=== PATIENT | male | born 1950 | race Caucasian/White ===

== ENCOUNTER 2016-12-09 14:12 | Emergency (ER) | payer MEDICARE, OTHER ==
--- NOTE | 2016-12-09 15:15 | ED ---
Back Pain - History of Current Complaint Chief Complaint: EDBackInjuryPain Stated Complaint: FALL / LT RIB-BACK PAIN Time Seen by Provider: 12/09/16 15:00 Hx Obtained From: Patient Onset/Duration: Sudden Onset - pt fell last night after drinking too much alcohol. he felt pain in L posterior back/.rib area Onset/Duration: Started Hours Ago, Traumatic Timing: Constant Severity Currently: Severe Pain Intensity: 10 Character: Sharp, Throbbing, Spasmodic Aggravating Symptom(s): Movement Alleviating Symptom(s): Position Associated Signs And Symptoms: Positive: Bruising - Allergies/Home Medications Allergies/Adverse Reactions: Allergies Allergy/AdvReac Type Severity Reaction Status Date / Time No Known Allergies Allergy Verified 03/12/15 12:00 PMH/Surg Hx/FS Hx/Imm Hx Previously Healthy: Yes Endocrine/Hematology History: Denies: Hx Diabetes Cardiovascular History: Reports: Hx Hypercholesterolemia, Hx Hypertension - medicated Denies: Hx Angina, Hx Myocardial Infarction, Hx Pacemaker/ICD Respiratory History: Denies: Hx Asthma GI History: Denies: Other GI Disorders Musculoskeletal History: Denies: Other Musculoskeletal History Sensory History: Reports: Hx Contacts or Glasses Denies: Hx Hearing Aid Opthamlomology History: Reports: Hx Contacts or Glasses Neurological History: Reports: Other Neuro Impairments/Disorders - miasthenia gravis Psychiatric History: Reports: Hx Depression Denies: Hx Panic Disorder - Surgical History Surgery Procedure, Year, and Place: cataract repair, Infectious Disease History: No Infectious Disease History: Denies: History Other Infectious Disease, Traveled Outside the [place] in Last 30 Days - Family History Known Family History: Positive: Hypertension - Social History Occupation: Retired - human resources compliance manager Alcohol Use: None Substance Use Type: Reports: None Smoking Status (MU): Former Smoker Review of Systems Constitutional: Negative Negative: Fever, Chills Cardiovascular: Negative Negative: Palpitations, Chest Pain Respiratory: Negative Negative: Shortness Of Breath Gastrointestinal: Negative Negative: Abdominal Pain, Nausea Positive: Other - rib pain Positive: Bruising - L lower lat back Neurological: Negative Psychological: Normal All Other Systems Reviewed And Are Negative: Yes Physical Exam Triage Information Reviewed: Yes Vital Signs On Initial Exam: Initial Vitals Temp Pulse Resp BP Pulse Ox 98 F 80 16 180/87 99 12/09/16 14:15 12/09/16 14:15 12/09/16 14:15 12/09/16 14:15 12/09/16 14:15 Vital Signs Reviewed: Yes Appearance: Positive: Well-Appearing, Well-Nourished, Pain Distress - if moving or taknig deep breath Skin: Positive: Warm, Skin Color Reflects Adequate Perfusion, Dry Head/Face: Positive: Normal Head/Face Inspection Neck: Positive: Supple, Nontender Respiratory/Lung Sounds: Positive: Clear to Auscultation, Breath Sounds Present. Negative: Decreased Breath Sounds Cardiovascular: Positive: Normal, RRR Abdomen Description: Positive: Nontender, No Organomegaly, Soft Musculoskeletal: Positive: Other - palp pain L lower, lateral rib area, ecchymosis, mild swelling Neurological: Positive: Normal, Sensory/Motor Intact, Alert, Oriented to Person Place, Time Psychiatric: Positive: Normal Diagnostics - Vital Signs Vital Signs Temp Pulse Resp BP Pulse Ox 12/09/16 14:15 98 F 80 16 180/87 99 - Laboratory Lab Statement: Any lab studies that have been ordered have been reviewed, and results considered in the medical decision making process. Re-Evaluation - Re-Evaluation First Eval Re-Evaluation Time: 17:00 - still having pain, but not worsening. Change: Unchanged Back Pain Course/Dx - Diagnoses Differential Diagnosis/HQI/PQRI: Positive: Fracture, Other - contusion Provider Diagnoses: Fractured rib Discharge - Discharge Plan Condition: Stable Disposition: HOME Prescriptions: Baclofen TAB* [Lioresal TAB*] 10 mg PO TID PRN #30 tab MDD 3 PRN Reason: Spasms - Muscle HYDROcodone/ACETAMIN 5-325 MG* [[place] 5-325 TAB*] 2 tab PO Q6H PRN #32 tab MDD 8 PRN Reason: Pain Patient Education Materials: Rib Fracture (ED) Referrals: Obey Landeros MD [Primary Care Provider] - 2 Days Additional Instructions: Ice to area of pain use medication as directed Return to ER if you experience shortness of breath or chest pain at any time
[2016-12-09] MEDS ORDERED: HYDROcodone/ACETAMIN 5-325 MG* 1 TAB PO ONE ×2 (16:30→17:12)
[2016-12-09] MEDS ORDERED: Cyclobenzaprine TAB* 10 MG PO ONE (17:16)
--- NOTE | 2016-12-09 17:16 | RAD ---
INDICATION: Posterior left rib pain after a fall the previous night COMPARISON: None. TECHNIQUE: 4 views of the left ribs were obtained. FINDINGS: On the AP view minimally displaced rib fractures are seen at the 12 and 11th ribs. On the oblique view there are at least 2 minimally displaced rib fractures overlying the lower left lateral ribs, potentially ribs #9 and 10. IMPRESSION: The patient has at least 2 left lower lateral rib fractures with minimal displacement.
[2016-12-09] MEDS ORDERED: Baclofen TAB* 10 MG PO ONE (17:23)
[2016-12-09] MEDS ORDERED: Baclofen TAB* 10 MG ONE (18:02)
[2016-12-09 18:36] VITALS: BP 169/78
== END 2016-12-09 18:33 | disposition home or self-care (01) ==
LOC: ED 14:12
DX: S22.32XA Fracture of one rib, left side, initial encounter for closed fracture (principal); W19.XXXA Unspecified fall, initial encounter; Y93.9 Activity, unspecified; Y92.9 Unspecified place or not applicable; Z87.891 Personal history of nicotine dependence
CPT/HCPCS: 99283; A9270-GY

== ENCOUNTER 2017-02-20 06:40 | Inpatient (IN) | payer MEDICARE, OTHER ==
[~2017-02-20 06:40] MED LIST: Famotidine IV* 10 MG/ML 2 ML (20 mg) IV ONE; Hydrocortisone INJ* 100 MG VIAL IV ONE
[2017-02-20] MEDS ORDERED: Famotidine IV* 10 MG/ML 2 ML (20 mg) ONE (06:59)
[2017-02-20] MEDS ORDERED: Buffered Lidocaine 0.9% SYRIN* 5 ML/SYR SYRINGE ONE (07:00)
[2017-02-20] MEDS ORDERED: ceFAZolin 2 GM PREMIX(*) 2 GM/50 ML BAG IVPB ONE (07:00)
[2017-02-20] MEDS ORDERED: Hydrocortisone INJ* 100 MG VIAL ONE (07:00)
[2017-02-20] MEDS ORDERED: Thrombin 5,000 UNITS* 1 APPLIC KIT - topical use - TOPICAL ONE (07:18)
[2017-02-20] MEDS ORDERED: Lidocaine 1% MPF wEPI 200,000* 30 ML SDV ONE (07:18)
[2017-02-20] MEDS ORDERED: Bacitracin IV* 50,000 UNITS INJ ONE (07:18)
[2017-02-20] MEDS ORDERED: Propofol* 10 MG/ML 20 ML BTL IV PUSH ONE (07:27)
[2017-02-20] MEDS ORDERED: fentaNYL* 50 MCG/ML 2 ML VIAL (100 MCG VIAL) ONE ×2 (07:27→10:17)
[2017-02-20] MEDS ORDERED: Lidocaine 2% PF * 5 ML VIAL ONE (07:27)
[2017-02-20] MEDS ORDERED: Midazolam* 1 MG/ML 2 ML VIAL (2 MG) ONE (07:27)
[2017-02-20] MEDS ORDERED: Succinylcholine* 20 MG/ML 10 ML VIAL ONE (07:27)
[2017-02-20] MEDS ORDERED: EPHEDrine (Pressors)* 50 MG/ML VIAL ONE (08:12)
[2017-02-20] MEDS ORDERED: Ondansetron INJ* 2 MG/ML VIAL ONE (08:22)
[2017-02-20] MEDS ORDERED: HYDROcodone/ACETAMIN 5-325 MG* 1 TAB PO PRN (08:28)
[2017-02-20] MEDS ORDERED: oxyCODONE/Acetamin 5/325 MG* TAB PO PRN (08:28)
[2017-02-20] MEDS ORDERED: PROCHLORPERAZINE INJ 5 MG/ML 2 ML VIAL IV PRN (08:28)
[2017-02-20] MEDS ORDERED: fentaNYL* 50 MCG/ML 2 ML VIAL (100 MCG VIAL) IV PRN (08:28)
[2017-02-20] MEDS ORDERED: Acetaminophen TAB* 325 MG PO PRN (09:15)
[2017-02-20] MEDS ORDERED: Ondansetron INJ* 2 MG/ML VIAL IV PRN (09:15)
--- NOTE | 2017-02-20 10:13 | RAD ---
HISTORY: Decompressive lumbar laminectomy COMPARISONS: MRI dated January 11, 2017 VIEWS: 2 , lateral portable crosstable views of the lumbar spine performed for localization during spinal surgery, performed at 8:10 AM and 8:55 AM FINDINGS: There is transitional anatomy. Based on counting scheme from the MRI of January 11, 2017. At 8:10 AM, a metallic probe is noted opposite of the L4 pedicle, counting from S1 as the last, transitional vertebral body, as noted on MRI. At 8:55 AM, a metallic probe is noted opposite of L5-S1 IMPRESSION: LIMITED PORTABLE VIEWS OF THE LUMBAR SPINE FOR LOCALIZATION DURING SPINAL SURGERY
[2017-02-20] MEDS: Insulin LISPRO* 1 UNITS UNIT SUBCUT SCH ×3 (12:07→21:03)
[2017-02-20] MEDS: HYDROcodone/ACETAMIN 5-325 MG* 1 TAB PO PRN ×3 (13:05→22:56)
[2017-02-20] MEDS: PITAVASTATIN 1 MG PO SCH (20:01)
[2017-02-21] MEDS: Insulin LISPRO* 1 UNITS UNIT SUBCUT SCH ×4 (07:29→20:43)
--- NOTE | 2017-02-21 07:43 | PN ---
Progress Note - Progress Note SOAP: Subjective: []POD # 1 Doing well Leg pain with walking relieved Still with moderate drain output Objective: []Neuro intact Moderate drain output Assessment: []Satis post op course Plan: [] Monitor drainage Continue to observe for now
[2017-02-21] MEDS: Hydrochlorothiazide TAB* 25 MG PO SCH (08:20)
[2017-02-21] MEDS: amLODIPine TAB* 5 MG PO SCH (08:20)
[2017-02-21] MEDS: HYDROcodone/ACETAMIN 5-325 MG* 1 TAB PO PRN ×4 (08:20→22:11)
[2017-02-21] MEDS ORDERED: Magnesium Hydroxide LIQ* 30 ML UDC PO PRN (19:48)
[2017-02-21] MEDS ORDERED: Docusate CAP* 100 MG PO PRN (19:48)
[2017-02-21] MEDS: PITAVASTATIN 1 MG PO SCH (20:45)
[2017-02-22] MEDS: HYDROcodone/ACETAMIN 5-325 MG* 1 TAB PO PRN ×2 (02:43→11:19)
[2017-02-22 07:48] VITALS: BP 117/59
--- NOTE | 2017-02-22 07:59 | PN ---
Progress Note - Progress Note SOAP: Subjective: [This is a 66 year old male s/p decompressive lumbar laminectomy L2-3 and L4-5, POD #2. Ambulation is improved post-op, less pain. He is eating, drinking and voiding without difficulty. He complains of soreness in the shoulders and anterior thighs but understands this is related to positioning during surgery. He denies headache. No numbness, tingling or pain in the lower extremities. ] Objective: [] Vital Signs: Temp Pulse Resp BP Pulse Ox 98.6 F 60 16 117/59 96 02/22/17 07:12 02/22/17 07:12 02/22/17 07:12 02/22/17 07:12 02/22/17 07:12 General: Alert and oriented. No distress. Neuro: Motor and sensory intact. Incision: Intact with carlos. No infection. CARMEN drain removed today. Extremities: Full ROM CARMEN drain output 02/20/17 02/20/17 02/20/17 10:15 12:45 13:49 Output, CARMEN #1 50 30 50 02/20/17 02/20/17 02/20/17 15:10 16:54 19:45 Output, CARMEN #1 40 15 20 02/20/17 02/21/17 02/21/17 22:00 00:18 04:00 Output, CARMEN #1 50 20 10 02/21/17 02/21/17 02/21/17 08:24 13:54 18:14 Output, CARMEN #1 20 30 10 02/21/17 02/22/17 02/22/17 22:00 02:51 06:27 Output, CARMEN #1 10 5 10 Assessment: [Satisfactory post-op course. ] Plan: [1. Discharge home today. 2. Discharge instructions discussed with the patient. ]
[2017-02-22] MEDS: Insulin LISPRO* 1 UNITS UNIT SUBCUT SCH ×2 (08:25→14:50)
[2017-02-22] MEDS: amLODIPine TAB* 5 MG PO SCH (09:12)
[2017-02-22] MEDS: Hydrochlorothiazide TAB* 25 MG PO SCH (09:12)
--- NOTE | 2017-02-24 00:28 | DS ---
DISCHARGE SUMMARY: DATE OF ADMISSION: 02/20/17 DATE OF DISCHARGE: 02/22/17 DISCHARGE DIAGNOSES: 1. Lumbar spinal stenosis. 2. Hypertension. 3. Type 2 diabetes. SPECIAL PROCEDURES: Decompressive lumbar laminectomy at L2-L3 and L4-L5. HOSPITAL COURSE: This 66-year-old male was seen in the office with symptomatic lumbar stenosis. He had failed to improve over nearly 2 years of conservative treatment and was admitted at this time for elective surgical therapy. On the day of admission, he was taken to surgery where under general anesthesia, a decompressive lumbar laminectomy at L2-L3 and L4-L5 operation was carried out. Postoperatively, he is feeling well. Preoperative lower extremity symptoms with ambulation were improved. He is ambulating without difficulty. He was eating, drinking and voiding without difficulty. Pain was well controlled with oral pain medications. He remained in the hospital for an additional night of observation secondary to continued wound drain output. On the second postoperative day, the CARMEN wound drain was removed and he was discharged home to the care of his family. DISCHARGE INSTRUCTIONS: Including wound care and activity level were discussed with the patient and provided. He will be seen in the office in approximately 7 to 10 days for followup and staple removal. DISCHARGE MEDICATIONS: [place] 5/325 mg 2 tabs by mouth every 4 hours as needed for pain. JULIAN MATTHEWS [id number]/[facility] #: [id number] RICK
== END 2017-02-22 11:48 | disposition home or self-care (01) | DRG 517 ==
LOC: OR 06:40 → SSU 11:37 → OBSVTOIN 02-21 15:54
PROVIDERS: ADMIT Neurological Surgery; ATTEND Neurological Surgery
PROC: 01NB0ZZ Release Lumbar Nerve, Open Approach (ICD-10-PCS; principal; 2017-02-21)
DX: M48.06 Spinal stenosis, lumbar region (principal); I10 Essential (primary) hypertension; E11.9 Type 2 diabetes mellitus without complications; G47.33 Obstructive sleep apnea (adult) (pediatric)
CPT/HCPCS: 72100; A9270-GY; J0330; J0690; J1720; J2001; J2250; J2405; J2704; J3010

== ENCOUNTER 2018-04-23 21:53 | Inpatient (IN) | payer MEDICARE, OTHER ==
[2018-04-23] MEDS ORDERED: Acetaminophen TAB* 325 MG PO ONE (22:28)
[2018-04-23] MEDS ORDERED: NS 0.9% 1000 ML*IV.FLUID IV ONE (22:28)
[2018-04-23] MEDS ORDERED: Vancomycin(*) 1,000 MG in NS 0.9% 250 ML* 250 ML IVPB ONE (22:30)
[2018-04-23] MEDS ORDERED: Piperacillin/Tazobac ADVAN(*) 3.375 GM in NS 0.9% 100 ML* 100 ML IVPB ONE (22:30)
[2018-04-23 23:14] LABS: ABS Basophils 0 10^3/ul (0-0.2); ABS Eosinophils 0 10^3/ul (0-0.6); ABS Lymphocytes 0.7 10^3/ul (1.0-4.8); ABS Monocytes 0.7 10^3/ul (0-0.8); ABS Neutrophils 8.2 10^3/ul (1.5-7.7); ABS Nucleated RBC 0.1 10^3/ul; Eosinophil % 0.2 % (0-6); Hematocrit 40 % (42-52); Hemoglobin 13.8 g/dl (14.0-18.0); Lymphocyte % 7.6 % (25-47); Mean Corpuscular HGB Conc 35 g/dl (31-36); Mean Corpuscular Hemoglobin 33 pg (27-31); Mean Corpuscular Volume 95 fL (80-94); Mean Platelet Volume 7.3 um3 (7.4-10.4); Nucleated Red Blood Cells % 0.7; Platelet Count 201 10^3/ul (150-450); Red Blood Count 4.22 10^6/ul (4.00-5.40); Red Cell Distribution Width 13 % (10.5-15); White Blood Count 9.7 10^3/ul (3.5-10.8)
[2018-04-23 23:23] LABS: INR 1.05 (0.77-1.02)
[2018-04-23] MEDS ORDERED: Piperacillin/Tazobac (*) 3.375 GM BAG ONE (23:30)
[2018-04-23 23:32] LABS: EGFR Non-African American 77.4 (>60)
[2018-04-23] MEDS ORDERED: Aspirin TAB* 325 MG PO ONE (23:41)
--- NOTE | 2018-04-24 01:05 | HP ---
H&P (Free Text) History and Physical: PCP: Noy Landeros MD Cardiology: Jesse Astudillo MD Date/Time: 04/24/2018 0140 CC: headache, garbled speech HPI: Mr eLnz is 68YO male HX DM2, HTN, HLD, JOVANNA, spinal stenosis presents with report of malaise, sore throat, headache, & cough for the past week. Headache is frontal. He had not been getting better and yesterday he developed an episode of of 'garbled', 'nonsensical' speech of uncertain duration which concerned his significant other prompting her to recommend evaluation. There was no neck pain, focal W/N/T or change in vision/swallow. His headache has significantly improved with treatment in the ED consisting of IVFs, aspirin, acetaminophen, ABX, and rest. CT brain is negative as is his CXR. Vitals are stable. He does not met SIRS or qSOFA criteria although he did have a Tmax 38.6C. WBCs are 9.7k. At this time he is likely suffering from a viral illness with concurrent TIA and as such will be admitted to telemetry for appropriate further evaluation. Neither I nor the ED MD feel his presentation warrants spinal tap at this time, although should his situation change it could become a reasonable evaluation. PMedHx DM2 HTN HLD JOVANNA on CPAP spinal stenosis Ambulatory Orders Nursing to reconcile. 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; lives alone; full code status FamHx: Mother: passed in her mid-80s 2nd CVA from AFIB; Father: passed in his 70s 2nd CAD; only sister: alive, healthy; only brother: AFIB, HTN, HLD ROS: as above, otherwise reviewed and all were negative vitals: Vital Signs Temp 38.6 C 04/24/18 00:07 Pulse 96 04/24/18 01:39 Resp 15 04/23/18 21:55 BP 115/51 04/24/18 01:39 Pulse Ox 98 04/24/18 01:39 Intake & Output 04/23/18 04/23/18 04/24/18 11:59 23:59 11:59 Weight 77.111 kg Constitutional: NAD, normally developed, well-nourished white male HEENM: atraumatic; sclera/conjunctiva: anicteric/clear; hearing: clinically intact; oropharynx: clear, mucosa moist Neck: soft tissue: non-tender, no nuchal rigidity; thyroid: normal Pulmonary: clear to auscultation bilaterally, good aeration, no accessory muscle use CV: RR/RR, normal S1S2, no carotid bruit, no jugular venous distention, 2+ B DP/ PT, no edema Abdominal: soft, non-distended, non-tender, no rebound/guarding/rigidity, normoactive bowel sounds, no hepatosplenomegaly or masses, no costovertebral angle tenderness Musculoskeletal: general: grossly intact, non-tender Integumental: normal appearance and texture of exposed skin Neurological cranial nerves III/IV/: symmetric light reflex, EOMI/PERRLA V: intact facial sensation & mastication VII: intact facial symmetry & eye clench VIII: hearing clinically intact IX/X: symmetric palatal motion, no dysarthria XII: midline tongue protrusion, normal voice articulation motor: R-handed LUE: 4+/5 proximally, distally, & grants director strength RUE: 4+/5 proximally, distally, & grants director strength LLE: 4+/5 proximally & distally RLE: 4+/5 proximally & distally coordination finger/nose: intact, symmetric heal/costello: intact, symmetric sensory crude touch: intact globally proprioception: intact B toes DTRs biceps: 1+ B triceps: 1+ B brachioradialis: 1+ B patellar: 1+ B Achilles: 1+ B Babinski: downgoing B Psychiatric orientation: AA&O to PPS affect: calm mood: cooperative, pleasant eye contact: good content: reliable responses: timely insight: good Testing: Lab Results 04/23/18 04/23/18 04/23/18 Range/Units 23:05 23:05 23:05 WBC 9.7 (3.5-10.8) 10^3/ul RBC 4.22 (4.00-5.40) 10^6/ul Hgb 13.8 L (14.0-18.0) g/dl Hct 40 L (42-52) % MCV 95 H (80-94) fL MCH 33 H (27-31) pg MCHC 35 (31-36) g/dl RDW 13 (10.5-15) % Plt Count 201 (150-450) 10^3/ul MPV 7.3 L (7.4-10.4) um3 Neut % (Auto) 84.4 H (38-83) % Lymph % (Auto) 7.6 L (25-47) % [place] % (Auto) 7.5 H (0-7) % Eos % (Auto) 0.2 (0-6) % Baso % (Auto) 0.3 (0-2) % Absolute Neuts (auto) 8.2 H (1.5-7.7) 10^3/ul Absolute Lymphs (auto) 0.7 L (1.0-4.8) 10^3/ul Absolute Monos (auto) 0.7 (0-0.8) 10^3/ul Absolute Eos (auto) 0 (0-0.6) 10^3/ul Absolute Basos (auto) 0 (0-0.2) 10^3/ul Absolute Nucleated RBC 0.1 10^3/ul Nucleated RBC % 0.7 INR (Anticoag Therapy) 1.05 H (0.77-1.02) APTT 29.2 (26.0-36.3) seconds Sodium 137 (135-145) mmol/L Potassium 3.8 (3.5-5.0) mmol/L Chloride 100 L (101-111) mmol/L Carbon Dioxide 28 (22-32) mmol/L Anion Gap 9 (2-11) mmol/L BUN 16 (6-24) mg/dL Creatinine 0.96 (0.67-1.17) mg/dL Est GFR ( Amer) 93.7 (>60) Est GFR (Non-Af Amer) 77.4 (>60) BUN/Creatinine Ratio 16.7 (8-20) Glucose 134 H (70-100) mg/dL Lactic Acid (0.5-2.0) mmol/L Calcium 9.8 (8.6-10.3) mg/dL Total Bilirubin 0.70 (0.2-1.0) mg/dL AST 16 (13-39) U/L ALT 19 (7-52) U/L Alkaline Phosphatase 68 (34-104) U/L Total Creatine Kinase 75 (10-223) U/L Troponin I 0.01 (<0.04) ng/mL C-Reactive Protein 21.64 H (<8.01) mg/L Total Protein 7.5 (6.4-8.9) g/dL Albumin 4.5 (3.2-5.2) g/dL Globulin 3.0 (2-4) g/dL Albumin/Globulin Ratio 1.5 (1-3) 04/23/18 Range/Units 23:05 WBC (3.5-10.8) 10^3/ul RBC (4.00-5.40) 10^6/ul Hgb (14.0-18.0) g/dl Hct (42-52) % MCV (80-94) fL MCH (27-31) pg MCHC (31-36) g/dl RDW (10.5-15) % Plt Count (150-450) 10^3/ul MPV (7.4-10.4) um3 Neut % (Auto) (38-83) % Lymph % (Auto) (25-47) % [place] % (Auto) (0-7) % Eos % (Auto) (0-6) % Baso % (Auto) (0-2) % Absolute Neuts (auto) (1.5-7.7) 10^3/ul Absolute Lymphs (auto) (1.0-4.8) 10^3/ul Absolute Monos (auto) (0-0.8) 10^3/ul Absolute Eos (auto) (0-0.6) 10^3/ul Absolute Basos (auto) (0-0.2) 10^3/ul Absolute Nucleated RBC 10^3/ul Nucleated RBC % INR (Anticoag Therapy) (0.77-1.02) APTT (26.0-36.3) seconds Sodium (135-145) mmol/L Potassium (3.5-5.0) mmol/L Chloride (101-111) mmol/L Carbon Dioxide (22-32) mmol/L Anion Gap (2-11) mmol/L BUN (6-24) mg/dL Creatinine (0.67-1.17) mg/dL Est GFR ( Amer) (>60) Est GFR (Non-Af Amer) (>60) BUN/Creatinine Ratio (8-20) Glucose (70-100) mg/dL Lactic Acid 1.4 (0.5-2.0) mmol/L Calcium (8.6-10.3) mg/dL Total Bilirubin (0.2-1.0) mg/dL AST (13-39) U/L ALT (7-52) U/L Alkaline Phosphatase (34-104) U/L Total Creatine Kinase (10-223) U/L Troponin I (<0.04) ng/mL C-Reactive Protein (<8.01) mg/L Total Protein (6.4-8.9) g/dL Albumin (3.2-5.2) g/dL Globulin (2-4) g/dL Albumin/Globulin Ratio (1-3) ECG, personally reviewed: NSR rate 74, no ischemia CXR, personally reviewed: no acute process CT brain WO, personally reviewed: IMPRESSION: No acute intracranial pathology Impression: 68M HX DM2, HTN, HLD, JOVANNA, spinal stenosis presents with TIA-type garbled speech in setting of a probable viral syndrome. DIAGNOSIS & PLAN Primary TIA : telemetry : neurochecks : aspirin given in ED : repeat CT brain WO tomorrow : supplemental oxygen : check lipids in AM : ECHO in AM : consider neurology consult in AM : supportive care fever, BROWNE, sore throat, cough : suspect viral syndrome : given IV vancomycin & piperacillin in ED, will hold further ABX at this time : blood CX : trend temperature & WBC curves : supportive care Secondary DM2 : check A1c : consistent carb diet : continue metformin : correctional lispro w/ ACHS glucometry HTN : review meds once reconciled HLD : heart healthy diet : review meds once reconciled JOVANNA : continue CPAP spinal stenosis : no acute issues Admission Rational: observation for TIA & viral syndrome DVTp: SCDs Code Status: full HCP: female friend: Nikhil Hillman
[2018-04-24] MEDS ORDERED: Ondansetron ODT TAB* 4 MG PO PRN (02:38)
[2018-04-24] MEDS ORDERED: Melatonin 3 MG TAB PO PRN (02:38)
[2018-04-24] MEDS: NS 0.9% 1000 ML* 1,000 ML IV SCH ×2 (03:45→17:28)
[2018-04-24] MEDS: Omeprazole CAP* 20 MG PO SCH (05:38)
[2018-04-24] MEDS: Acetaminophen TAB* 325 MG PO PRN (05:43)
--- NOTE | 2018-04-24 06:41 | ED ---
Neurological HPI - HPI Summary HPI Summary: This is scribe Sandro Lindsay documenting for attending Sita Hernandez M.D. Patient is a 68 y/o M w/ c/o difficulty producing words and BROWNE. Patient is reported to have not been feeling well for five days. He notes a fever, chills, coughing, sore throat, BROWNE, difficulty swallowing, esophageal pain. He denies vomiting and nausea but noted diarrhea last night x3. At around 1630 today, patient was reportedly tired and had decreased appetite. He went to sleep at 1700, woke up at 2000. reports at this time patient was having difficulty producing words. She states patient did not have facial droop, could walk, and could stand. Patient notes he started a new HTN medication a week ago and is concerned this medication might be causing Sx. He stopped taking the new medication he was prescribed and began to use previous medication. On triage, pain is rated 9/10 and nothing is noted to aggravate/alleviate Sx. Home medications and allergies reviewed. I, Dr. Hernandez, personally performed the services described in this documentation as scribed in my presence and it is both accurate and complete. - History of Current Complaint Chief Complaint: EDHeadache Stated Complaint: HEADACHE Time Seen by Provider: 04/23/18 22:12 Hx Obtained From: Patient Onset/Duration: Started hours ago - tiredness and decreased appetite 1630 today , difficulty producing words at 2000 today, Started days ago - fever, chills, coughing, sore throat, BROWNE, difficulty swallowing, esophageal pain five days ago , diarrhea yesterday Current Severity: Severe - 9/10 Pain Intensity: 9 Pain Scale Used: 0-10 Numeric - 9/10 Character: Impaired Speech Aggravating: Nothing Alleviating: Nothing Associated Signs and Symptoms: Positive: Headache, Weakness - tiredness, Impaired Speech, Fever, Diarrhea, Change in Medication. Negative: Nausea/ Vomiting - Additional Pertinent History Primary Care Physician: [id number] Oxygen Devices Used Prior to Hospitalization: None - Allergy/Home Medications Allergies/Adverse Reactions: Allergies Allergy/AdvReac Type Severity Reaction Status Date / Time atorvastatin [From Lipitor] AdvReac Leg Cramps Verified 04/23/18 22:00 PMH/Surg Hx/FS Hx/Imm Hx Endocrine/Hematology History: Reports: Hx Diabetes - DIET & MEDS Cardiovascular History: Reports: Hx Hypercholesterolemia, Hx Hypertension Denies: Hx Angina, Hx Myocardial Infarction, Hx Pacemaker/ICD Respiratory History: Reports: Hx Sleep Apnea Denies: Hx Asthma GI History: Denies: Other GI Disorders History: Denies: Hx Renal Disease Musculoskeletal History: Reports: Other Musculoskeletal History - spinal stenosis Sensory History: Reports: Hx Contacts or Glasses, Hx Hearing Aid - PATRICIO Opthamlomology History: Reports: Hx Contacts or Glasses Neurological History: Reports: Other Neuro Impairments/Disorders - miasthenia gravis Psychiatric History: Reports: Hx Depression Denies: Hx Panic Disorder - Surgical History Surgery Procedure, Year, and Place: cataract repair, Hx Anesthesia Reactions: No - Immunization History Immunizations Up to Date: Yes Infectious Disease History: No Infectious Disease History: Denies: History Other Infectious Disease, Traveled Outside the [place] in Last 30 Days - Family History Known Family History: Positive: Hypertension - Social History Alcohol Use: None Substance Use Type: Reports: None Smoking Status (MU): Former Smoker Amount Used/How Often: smoked since 14 years old , quit when 33 years old Review of Systems Positive: Fever, Chills, Fatigue - tiredness Positive: Sore Throat, Other - difficulty swallowing, esophageal pain Positive: Cough Positive: Diarrhea, Other - decreased appetite. Negative: Vomiting, Nausea Neurological: Other - difficulty producing words Positive: Headache All Other Systems Reviewed And Are Negative: Yes Physical Exam - Summary Physical Exam Summary: VITAL SIGNS: Reviewed. GENERAL: Patient is a well-developed and nourished male who is lying comfortable in the stretcher. Patient is not in any acute respiratory distress. HEAD AND FACE: No signs of trauma. No ecchymosis, hematomas or skull depressions. No sinus tenderness. EYES: PERRLA, EOMI x 2, No injected conjunctiva, no nystagmus. EARS: Hearing grossly intact. Ear canals and tympanic membranes are within normal limits. MOUTH: Oropharynx within normal limits. NECK: Supple, trachea is midline, no adenopathy, no JVD, no carotid bruit, no c- spine tenderness, neck with full ROM. CHEST: Symmetric, no tenderness at palpation LUNGS: Clear to auscultation bilaterally. No wheezing or crackles. CVS: Regular rate and rhythm, S1 and S2 present, no murmurs or gallops appreciated. ABDOMEN: Soft, non-tender. No signs of distention. No rebound no guarding, and no masses palpated. Bowel sounds are normal. EXTREMITIES: FROM in all major joints, no edema, no cyanosis or clubbing. NEURO: Alert and oriented x 3. No acute neurological deficits. Speech is normal and follows commands. GCS 15 SKIN: Dry and warm Triage Information Reviewed: Yes Vital Signs On Initial Exam: Initial Vitals Temp Pulse Resp BP Pulse Ox 100.4 F 83 15 169/68 96 04/23/18 21:55 04/23/18 21:55 04/23/18 21:55 04/23/18 21:55 04/23/18 21:55 Vital Signs Reviewed: Yes - [place] Coma Scale Best Eye Response: 4 - Spontaneous Best Motor Response: 6 - Obeys Commands Best Verbal Response: 5 - Oriented Coma Scale Total: 15 Diagnostics - Vital Signs Vital Signs Temp Pulse Resp BP Pulse Ox 04/24/18 01:39 96 115/51 98 04/24/18 01:00 68 93 04/24/18 00:39 67 122/63 93 04/24/18 00:07 101.5 F 04/24/18 00:00 74 94 04/23/18 23:45 73 95 04/23/18 23:39 75 146/50 93 04/23/18 21:55 100.4 F 83 15 169/68 96 - Laboratory Lab Results: Lab Results 04/23/18 04/23/18 04/23/18 Range/Units 23:05 23:05 23:05 WBC 9.7 (3.5-10.8) 10^3/ul RBC 4.22 (4.00-5.40) 10^6/ul Hgb 13.8 L (14.0-18.0) g/dl Hct 40 L (42-52) % MCV 95 H (80-94) fL MCH 33 H (27-31) pg MCHC 35 (31-36) g/dl RDW 13 (10.5-15) % Plt Count 201 (150-450) 10^3/ul MPV 7.3 L (7.4-10.4) um3 Neut % (Auto) 84.4 H (38-83) % Lymph % (Auto) 7.6 L (25-47) % [place] % (Auto) 7.5 H (0-7) % Eos % (Auto) 0.2 (0-6) % Baso % (Auto) 0.3 (0-2) % Absolute Neuts (auto) 8.2 H (1.5-7.7) 10^3/ul Absolute Lymphs (auto) 0.7 L (1.0-4.8) 10^3/ul Absolute Monos (auto) 0.7 (0-0.8) 10^3/ul Absolute Eos (auto) 0 (0-0.6) 10^3/ul Absolute Basos (auto) 0 (0-0.2) 10^3/ul Absolute Nucleated RBC 0.1 10^3/ul Nucleated RBC % 0.7 INR (Anticoag Therapy) 1.05 H (0.77-1.02) APTT 29.2 (26.0-36.3) seconds Sodium 137 (135-145) mmol/L Potassium 3.8 (3.5-5.0) mmol/L Chloride 100 L (101-111) mmol/L Carbon Dioxide 28 (22-32) mmol/L Anion Gap 9 (2-11) mmol/L BUN 16 (6-24) mg/dL Creatinine 0.96 (0.67-1.17) mg/dL Est GFR ( Amer) 93.7 (>60) Est GFR (Non-Af Amer) 77.4 (>60) BUN/Creatinine Ratio 16.7 (8-20) Glucose 134 H (70-100) mg/dL Lactic Acid (0.5-2.0) mmol/L Calcium 9.8 (8.6-10.3) mg/dL Total Bilirubin 0.70 (0.2-1.0) mg/dL AST 16 (13-39) U/L ALT 19 (7-52) U/L Alkaline Phosphatase 68 (34-104) U/L Total Creatine Kinase 75 (10-223) U/L Troponin I 0.01 (<0.04) ng/mL C-Reactive Protein 21.64 H (<8.01) mg/L Total Protein 7.5 (6.4-8.9) g/dL Albumin 4.5 (3.2-5.2) g/dL Globulin 3.0 (2-4) g/dL Albumin/Globulin Ratio 1.5 (1-3) 04/23/18 04/24/18 Range/Units 23:05 02:02 WBC (3.5-10.8) 10^3/ul RBC (4.00-5.40) 10^6/ul Hgb (14.0-18.0) g/dl Hct (42-52) % MCV (80-94) fL MCH (27-31) pg MCHC (31-36) g/dl RDW (10.5-15) % Plt Count (150-450) 10^3/ul MPV (7.4-10.4) um3 Neut % (Auto) (38-83) % Lymph % (Auto) (25-47) % [place] % (Auto) (0-7) % Eos % (Auto) (0-6) % Baso % (Auto) (0-2) % Absolute Neuts (auto) (1.5-7.7) 10^3/ul Absolute Lymphs (auto) (1.0-4.8) 10^3/ul Absolute Monos (auto) (0-0.8) 10^3/ul Absolute Eos (auto) (0-0.6) 10^3/ul Absolute Basos (auto) (0-0.2) 10^3/ul Absolute Nucleated RBC 10^3/ul Nucleated RBC % INR (Anticoag Therapy) (0.77-1.02) APTT (26.0-36.3) seconds Sodium (135-145) mmol/L Potassium (3.5-5.0) mmol/L Chloride (101-111) mmol/L Carbon Dioxide (22-32) mmol/L Anion Gap (2-11) mmol/L BUN (6-24) mg/dL Creatinine (0.67-1.17) mg/dL Est GFR ( Amer) (>60) Est GFR (Non-Af Amer) (>60) BUN/Creatinine Ratio (8-20) Glucose (70-100) mg/dL Lactic Acid 1.4 0.7 (0.5-2.0) mmol/L Calcium (8.6-10.3) mg/dL Total Bilirubin (0.2-1.0) mg/dL AST (13-39) U/L ALT (7-52) U/L Alkaline Phosphatase (34-104) U/L Total Creatine Kinase (10-223) U/L Troponin I (<0.04) ng/mL C-Reactive Protein (<8.01) mg/L Total Protein (6.4-8.9) g/dL Albumin (3.2-5.2) g/dL Globulin (2-4) g/dL Albumin/Globulin Ratio (1-3) Result Diagrams: 04/24/18 06:40 04/23/18 23:05 Lab Statement: Any lab studies that have been ordered have been reviewed, and results considered in the medical decision making process. - Radiology CXR Xray Interpretation: Positive (See Comments) Radiology Interpretation Completed By: ED Physician - right lower lobe infiltrate, pending official report - CT CT Head CT Interpretation: No Acute Changes CT Interpretation Completed By: Radiologist - No acute intracranial pathology. This report was reviewed by ED physician. - EKG 2305 Cardiac Rate: NL - rate of 74 BPM EKG Rhythm: Sinus Rhythm EKG Interpretation: Normal axis. Normal interval. No ischemic changes Re-Evaluation - Re-Evaluation First Eval Re-Evaluation Time: 23:45 Comment: Discussed plan of treatment for patient further. Second Eval Re-Evaluation Time: 00:46 Comment: Discussed results of labs and tests with patient as well as decision to admit patient to [facility] [place] for further work up. Patient is agreeable with this plan. Course/Dx - Course Assessment/Plan: Patient is a 68 y/o M w/ c/o difficulty producing words and BROWNE. Patient is reported to have not been feeling well for five days. He notes a fever, chills, coughing, sore throat, BROWNE, difficulty swallowing, esophageal pain. He denies vomiting and nausea but noted diarrhea last night x3. At around 1630 today, patient was reportedly tired and had decreased appetite. He went to sleep at 1700, woke up at 2000. reports at this time patient was having difficulty producing words. She states patient did not have facial droop , could walk, and could stand. Patient notes he started a new HTN medication a week ago and is concerned this medication might be causing Sx. He stopped taking the new medication he was prescribed and began to use previous medication. On triage, pain is rated 9/10 and nothing is noted to aggravate/ alleviate Sx. Physical exam was normal. During ED course, patient was given fluids, piperacillin sod/tazobactam sod 100 mls @ 200 ms/hr IVPB ED ONCE, fluids , aspirin 325 mg PO ONCE, Tylenol 975 mg PO ED ONCE. CT Head and EKG showed no abnormal findings. CXR revealed right lower lobe infiltrate. Labs showed CRP 21.64 H, glucose 134 H, chloride 100 L, INR 1.05 H, Hgb 13.8 L, Hct 40 L, MCV 95 H, MCH H, MPV 7.3 L, Neut % 84.4 H, lymph % 7.6 L, mono % 7.5 H, absolute neuts 8.2 H, and absolute lymphs 0.7 L. Patient's case was discussed with Dr. Oscar. Dr. Oscar accepts patient for admission to [facility] [place] for further workup. Patient is agreeable with admission and was diagnosed with TIA and PNA. - Diagnoses Provider Diagnoses: PNA (pneumonia), TIA (transient ischemic attack) - Physician Notifications Discussed Care Of Patient With: Jc Oscar Time Discussed With Above Provider: 00:44 Instructed by Provider To: Other - Dr. Oscar was consulted on patient's case at 0044. He accepts for admission to [facility] [place]. Discharge - Sign-Out/Discharge Documenting (check all that apply): Patient Departure - admit - Discharge Plan Condition: Fair Disposition: ADMITTED TO [facility]
[2018-04-24 07:14] LABS: ABS Basophils 0 10^3/ul (0-0.2); ABS Eosinophils 0 10^3/ul (0-0.6); ABS Monocytes 1.1 10^3/ul (0-0.8); ABS Neutrophils 7.5 10^3/ul (1.5-7.7); ABS Nucleated RBC 0 10^3/ul; Eosinophil % 0.2 % (0-6); Hematocrit 33 % (42-52); Lymphocyte % 10.4 % (25-47); Mean Corpuscular HGB Conc 36 g/dl (31-36); Mean Corpuscular Hemoglobin 34 pg (27-31); Mean Corpuscular Volume 93 fL (80-94); Mean Platelet Volume 7.6 um3 (7.4-10.4); Nucleated Red Blood Cells % 0; Platelet Count 168 10^3/ul (150-450); Red Blood Count 3.59 10^6/ul (4.00-5.40); Red Cell Distribution Width 13 % (10.5-15); White Blood Count 9.6 10^3/ul (3.5-10.8)
--- NOTE | 2018-04-24 07:23 | RAD ---
INDICATION: TIA COMPARISON: None TECHNIQUE: Noncontrast axial source images were acquired from the skull base to the vertex. FINDINGS: Ventricles/sulci: The ventricles and cisterns are normal in size and configuration for age. Brain parenchyma: There is no focal parenchymal finding, evidence of intracranial mass, or intracranial mass effect. Intracranial hemorrhage:None. Extra-axial spaces: There are no abnormal extra axial fluid collections or evidence of extra-axial mass. Calvarium: There is no calvarial fracture or other calvarial abnormality. Scalp: There is no evidence of scalp or extracalvarial soft tissue abnormality. Paranasal sinuses/mastoid: The paranasal sinuses and mastoid air cells are clear. Other: None. IMPRESSION: NEGATIVE EXAMINATION
--- NOTE | 2018-04-24 07:42 | RAD ---
Indication: Fever. Single frontal view of the chest performed at 2234 hours was reviewed. Comparison is made with previous exam dated February 01, 2017. No mediastinal shift is noted. Heart is of normal size and configuration. Lung yañez appear clear. IMPRESSION: NO ACTIVE CARDIOPULMONARY DISEASE IS NOTED. R2
--- NOTE | 2018-04-24 12:19 | ECHO ---
Patient: HANDY MARTINS [facility] Rec#: [id number] : 1950 Date: 04/24/2018 Age: 68y Height: 183 cm / 72.0 in Weight: 170 kg / 374.7 lbs Sex: M BSA: 2.78 Room#: [facility] Admit Date#: 04/24/2018 Type: Inpatient Referring: Jc Oscar MD Reading: Clara Garcia MD Telephone Operator: Arianna Donohue RDCS CC: Obey Landeros CC: Mark Astudillo MD Transthoracic Echocardiogram Indication: TIA BP: 116/44 HR: 69 Rhythm: NSR Findings History: DM,HTN,HLD,JOVANNA,former smoker. Technical Comments: The study is technically limited due to the patient's smoking history. Completed at 1110. Left Ventricle: The left ventricular chamber size is normal. Mild concentric left ventricular hypertrophy is observed. Global left ventricular wall motion and contractility are within normal limits. The estimated ejection fraction is greater than 65%. Normal left ventricular diastolic filling is observed. Left Atrium: The left atrium is mildly dilated. Right Ventricle: The right ventricular cavity size is normal. The right ventricular global systolic function is normal. Right Atrium: The right atrial cavity size is normal. A patent foramen ovale is not demonstrated by color Doppler. There is evidence of an atrial septal aneurysm. Aortic Valve: The aortic valve is trileaflet. There is a trace of aortic regurgitation. There is no evidence of aortic stenosis. Mitral Valve: The mitral valve leaflets are mildly thickened. There is mild mitral regurgitation. There is no evidence of mitral stenosis. Tricuspid Valve: The tricuspid valve leaflets are normal. There is mild tricuspid regurgitation. No pulmonary hypertension is noted. There is no tricuspid stenosis. Pulmonic Valve: The pulmonic valve appears normal. There is no evidence of pulmonic regurgitation. There is no pulmonic stenosis. Pericardium: The pericardium appears normal. Aorta: There is mild dilatation of the ascending aorta.proximal calcification, mobile, in the region of coronary ostia. The aortic arch is not well visualized. There is no dilation of the aortic root. Conclusions Mild concentric left ventricular hypertrophy is observed. Global left ventricular wall motion and contractility are normal to hyperdynamic. The estimated ejection fraction is greater than 65%. The right ventricular global systolic function is normal. There is evidence of an atrial septal aneurysm. No evidence of a patent foramen ovale demonstrated by color Doppler. There is a trace of aortic regurgitation. There is mild mitral regurgitation. There is mild tricuspid regurgitation. There is mild dilatation of the ascending aorta. Mobile calcification in the proximal aorta. No prior echo to compare. Consider CTA to follow up on mobile calcification of the aorta. Measurements Name Value Normal Range RVIDd (AP) 2D 3.5 cm (0.9 - 2.6) RVDdMajor (2D) 3.2 cm (2.2 - 4.4) RAd ISD 4CH 4.6 cm (3.4 - 4.9) RA (A4C)W 3.1 cm (2.9 - 4.6) IVSd (2D) 1.1 cm (0.6 - 1) LVPWd (2D) 1.1 cm (0.6 - 1) LVIDd (2D) 4.7 cm (3.6 - 5.4) LVIDs (2D) 2.5 cm - LV FS (2D) 46 % (25 - 45) Aortic Annulus 1.8 cm (1.4 - 2.6) Ao root diameter (2D) 3.2 cm (2.1 - 3.5) Ascending Ao 3.6 cm (2.1 - 3.4) LA dimension (AP) 2D 4.1 cm (2.3 - 3.8) LAd ISD 4CH 4.6 cm (2.9 - 5.3) LA ISD 4CH W 3.1 cm (2.5 - 4.5) Name Value Normal Range LA ESV SP 4CH (A/L) 12.5 ml - LA ESV SP 2CH (A/L) 23 ml - LA ESV BP (A/L) index 35.8 ml/m2 - Name Value Normal Range MV E-wave Vmax 1.3 m/sec - MV deceleration time 211 msec - MV A-wave Vmax 1.1 m/sec - MV E:A ratio 1.1 ratio - LV septal e' Vmax 0.09 m/sec - LV lateral e' Vmax 0.15 m/sec - LV E:e' septal ratio 14.44 ratio - LV E:e' lateral ratio 8.67 ratio - Name Value Normal Range AV Vmax 2.1 m/sec - AV VTI 35.3 cm - AV peak gradient 17 mmHg - AV mean gradient 7 mmHg - LVOT Vmax 1.9 m/sec - LVOT VTI 32.3 cm - LVOT peak gradient 14 mmHg - LVOT mean gradient 5 mmHg - Name Value Normal Range MR Vmax 4.3 m/sec - MR VTI 116 cm - Name Value Normal Range TR Vmax 2.6 m/sec - TR peak gradient 28 mmHg - RAP 3 mmHg - RVSP 31 mmHg - IVC diameter 1.7 cm - Name Value Normal Range PV Vmax 0.8 m/sec - PV peak gradient 2 mmHg -
[2018-04-24] MEDS ORDERED: Iodixanol* (CONTRAST) 320 MG/ML 100 ML SDV IV ONE (13:22)
[2018-04-24] MEDS ORDERED: Iodixanol* (CONTRAST) 320 MG/ML 100 ML SDV IV SCH ×2 (13:29→14:00)
[2018-04-24] MEDS ORDERED: Gadoteridol* (CONTRAST) 279.3 MG/ML 10 ML IV ONE (15:59)
--- NOTE | 2018-04-24 16:21 | CONS ---
ADDENDUM NOW INCLUDED ON THIS REPORT NEUROLOGY CONSULTATION REPORT: DATE OF CONSULT: 04/24/18 CONSULTING PROVIDER: Jc Oscar MD REASON FOR NEUROLOGICAL CONSULTATION: Headache and slurred speech. CHIEF COMPLAINT: Headache. HISTORY OF PRESENT ILLNESS: Mr. Lenz is a 68-year-old man with history of type 2 diabetes, hypertension, dyslipidemia, obstructive sleep apnea, myasthenia gravis, who follows up with Dr. Melendez and he is only on Mestinon 60 mg daily, who presented to [facility] on 04/23/18 with 1-week history of generalized malaise, sore throat, headache, and cough. The patient has no history of migraine headaches. He describes the headache as bifrontal pressure- like constant pain that started 1 week ago. The headache severity is 6/10. Sleeping on the left side makes the headache better. Cough and sneezing and straining do exacerbate the headache. Light does bother him. He denies any neck pain. During the same time he has the headaches, the patient noticed trouble with word finding. This started yesterday at approximately 3 p.m. The patient went to a play with his significant other at 2 p.m., which he was last seen normal. At 3 p.m., he started developing headaches. His headaches worsened and he took an ibuprofen. He stayed watching the play until he got home at 5:30 where he slept until 8:30. When he woke up, he was having word- finding difficulty. He had no focal weakness or paresthesias. The spouse then immediately took him to the ER for further evaluation. The patient's goal of care is to figure out how to treat his current headache. PAST MEDICAL HISTORY: As mentioned in the HPI. PAST SURGICAL HISTORY: Lumbar spinal surgery in the past. HOME MEDICATIONS: 1. Pitavastatin 1 mg tablet p.o. daily. 2. Prednisone 2.5 mg p.o. daily. The patient did report to me that he was not taking the prednisone. 3. Metformin 500 mg p.o. b.i.d. 4. Hydrochlorothiazide 25 mg p.o. daily. 5. Amlodipine 5 mg p.o. daily. 6. Hydrocodone/acetaminophen 5/325 two tablets by mouth every 4 hours as needed for pain. ALLERGIES: ATORVASTATIN. REVIEW OF SYSTEMS: Review of systems was obtained and otherwise negative except for what was mentioned in the HPI. PHYSICAL EXAM: Vitals: Temperature of 100.5, pulse rate of 73, respiratory rate of 20, oxygen saturation of 96%, and blood pressure is 125/44. General: Ill- appearing man, in no acute distress. I entered the room and that was dark given his headaches. Head: Normocephalic without any obvious abnormality. Eyes: Conjunctivae/corneas are clear. Neck is supple and symmetrical with no nuchal rigidity. Negative Brudzinski's and Kernig's signs. Lungs: Clear to auscultation bilaterally. Cardiovascular: Regular rhythm with normal S1, S2. Extremities: Normal range of motion with no cyanosis. Skin: No skin lesions or laceration. Affect is broad and he was able to provide good medical history. Very easy to establish rapport. Mental Status: Awake. He is alert, oriented to person, place, time, and general circumstances, but he does have word-finding difficulty. He is able to name objects. He is able to repeat sentences. He comprehended complicated commands, but it seems like he has a mild form of expressive aphasia. Cranial Nerves: Normal confrontation bilaterally. Pupils are mid range and reactive to light. Normal consensual response. Sensation is intact on the forehead, cheeks, and jaw region bilaterally. There was no facial droop except for a subtle flattening of the nasolabial fold on the right. Tongue is symmetrical and midline with no atrophy or fasciculation. Motor: No abnormal movements. No pronator drift. He has got 5/5 strength throughout the upper and lower extremities. Reflexes: 2 + brachioradialis, biceps, triceps, patella, and ankles bilaterally. Plantar flexor bilaterally. Sensation is intact to light touch throughout except for he has got a distal to proximal sensory gradient to vibratory sensation up to the ankles. Normal proprioception at the great toes. Normal [id number], but he did have slow alternating movements on the left. Gait and Station: Narrow based, normal stance. DIAGNOSTIC STUDIES/LAB DATA: WBC 9.6, hemoglobin of 12, hematocrit of 33, platelet count of 168. INR of 1.05, APTT 29.2. Sodium 137, potassium 3.8, anion gap is 9, creatinine of 0.96. C-reactive protein of 21. Cholesterol is 99, LDL is 45. Group A strep rapid negative. CT head without contrast was personally reviewed and was obtained yesterday. There was no acute intracranial disease. ASSESSMENT AND PLAN: 1. Mr. Raudel Lenz is a 68-year-old man with history of hypertension, diabetes type 2, myasthenia gravis which he is stable on with he reports Mestinon 1 dose daily, who presented to [facility] for a 1-week history of frontal headaches and new-onset word-finding difficulty. On examination today, the patient did have evidence of some expressive aphasia. He has no other neurological deficit other than a possible reduced alternating movement on the left and left facial droop. He also complains of other nonspecific symptoms such as sore throat, cough, and generalized malaise. I am concerned that the patient may have either a vascular phenomenon versus [employer] viral infection that could be explaining his headache and new neurological deficits. He will need the following tests: MRI brain with and without contrast, MRI head, lumbar puncture. The lumbar puncture will be attempted at bedside. Continue aspirin 81 mg daily. Consider starting the patient on acyclovir for prophylaxis until the HSV comes back. The lumbar puncture, we should check for cell count and diff, Gram stain, protein, glucose, HSV PCR 1 and 2, enterovirus. 2. Hypertension, stable. 3. Dyslipidemia, on statin therapy. 4. History of myasthenia gravis - the patient denied any symptoms of double vision or slurred speech or swallowing difficulty. I discussed this case with nurse practitioner, Reta. TIME SPENT: I spent a total of 75 minutes and greater than 50% of that was spent directly reviewing the medical chart, obtaining history, examining the patient, education and counseling, discussing the treatment plan and prognosis. ADDENDUM: I spoke to Reta who shared with me the echo report. The patient has mobile calcification in the proximal order. We are not sure if this is related to a possible mobile infected mass lesion. However, blood cultures were recommended. In addition, it is interesting that the patient has left upper extremity reduced rapid alternative movements, word finding difficulty, as well as questionable left facial droop. All of that would correlate with multifocal emboli that may be emanating from this mobile calcified lesion. If the MRI brain show evidence of stroke, then we have the cause of the patient's new neurological deficits. Otherwise, we would still need to rule out any [employer] infection by getting a lumbar puncture. I will continue to follow. [id number]/[facility] #: [id number] A- [id number]/[facility]PS #: [id number] RICK
--- NOTE | 2018-04-24 16:26 | RAD ---
Indication: Stroke. Sagittal and axial T1, axial T2, FLAIR, diffusion and susceptibility weighted images of the brain were obtained. Approximately 15 mL of ProHance was injected and sagittal, axial and coronal T1-weighted postcontrast images were repeated. Ventricular structures are midline. No midline shift is noted. Central and cortical atrophy is noted. The FLAIR images demonstrate minimal punctate deep white matter and subcortical white matter changes without restriction of diffusion. These likely represent chronic ischemic White matter change. Posterior fossa and brainstem demonstrates no evidence of abnormal signal. No restriction of diffusion is noted. The postcontrast images demonstrate no evidence of enhancing lesions. Mastoid air cells and paranasal sinuses are otherwise unremarkable. IMPRESSION: No enhancing lesions are noted. No intracranial lesion is identified. No restriction of diffusion is noted. Nonspecific signal abnormalities on the FLAIR images in the deep white matter likely represent minor microvascular change.
--- NOTE | 2018-04-24 16:55 | CONS ---
CONSULTATION NOTE: ADDENDUM: I spoke to Reta who shared with me the echo report. The patient has mobile calcification in the proximal order. We are not sure if this is related to a possible mobile infected mass lesion. However, blood cultures were recommended. In addition, it is interesting that the patient has left upper extremity reduced rapid alternative movements, word finding difficulty, as well as questionable left facial droop. All of that would correlate with multifocal emboli that may be emanating from this mobile calcified lesion. If the CTA is positive as well as the MRA is positive, then we have the cause of the patient's new neurological deficits. Lumbar puncture may not be indicated at that point. I will continue to follow. [id number]/[facility] #: [id number] [facility] CENTEROsvaldo
[2018-04-24] MEDS: Butalb/Acetamin/Caff TAB* 1 TAB PO PRN (18:26)
[2018-04-24 19:59] LABS: Urine Appearance Clear; Urine Blood 1+ (Negative); Urine Color Yellow; Urine Ketones 1+ (Negative); Urine Protein Negative (Negative); Urine Red Blood Cell Trace(0-2/hpf) (Absent); Urine Specific Gravity 1.012 (1.010-1.030); Urine Urobilinogen Negative (Negative); Urine White Blood Cell Trace(0-5/hpf) (Absent)
--- NOTE | 2018-04-24 20:01 | PN ---
Subjective Date of Service: 04/24/18 Interval History: Patient seen and examined post-MRI, headache somewhat improved, still described as all over pressure, improvement with fioricet. Deneis n/v, no chills, remains with low grade fever and states pain in head increases with cough. Objective Active Medications: Acetaminophen (Tylenol Tab*) 650 mg PO Q6H PRN PRN Reason: FEVER/PAIN Last Admin: 04/24/18 05:43 Dose: 650 mg Acetaminophen/Butalbital/Caffeine (Fioricet Tab*) 1 tab PO Q4H PRN PRN Reason: HEADACHE Last Admin: 04/24/18 18:26 Dose: 1 tab Aspirin (Aspirin Ec Tab*) 81 mg PO DAILY MAURICIO Sodium Chloride (Ns 0.9% 1000 Ml*) 1,000 mls @ 125 mls/hr IV PER RATE MAURICIO Last Admin: 04/24/18 17:28 Dose: 125 mls/hr Iodixanol (Visipaque* 320 (Contrast)) 100 ml IV ONCE MAURICIO Stop: 04/26/18 13:28 Iodixanol (Visipaque* 320 (Contrast)) 78 ml IV ONCE MAURICIO Stop: 04/26/18 13:21 Melatonin (Melatonin) 3 mg PO BEDTIME PRN; Protocol PRN Reason: Sleep Omeprazole (Prilosec Cap*) 20 mg PO DAILY@0600 MAURICIO Last Admin: 04/24/18 05:38 Dose: 20 mg Ondansetron HCl (Zofran Odt Tab*) 4 mg PO Q6H PRN PRN Reason: n/v Vital Signs - 8 hr 04/24/18 04/24/18 15:19 18:26 Temperature 99.0 F Pulse Rate 71 Respiratory 20 16 Rate Blood Pressure 130/50 (mmHg) O2 Sat by Pulse 93 Oximetry Oxygen Devices in Use Now: None Appearance: alert, NAD Eyes: No Scleral Icterus, PERRLA Ears/Nose/Mouth/Throat: NL Teeth, Lips, Gums, Mucous Membranes Moist Neck: NL Appearance and Movements; NL JVP, Trachea Midline Respiratory: Symmetrical Chest Expansion and Respiratory Effort, Clear to Auscultation Cardiovascular: NL Sounds; No Murmurs; No JVD, RRR Abdominal: NL Sounds; No Tenderness; No Distention Extremities: No Edema Skin: No Rash or Ulcers Neurological: Alert and Oriented x 3, NL Sensation, NL Gait Nutrition: Taking PO's Result Diagrams: 04/24/18 06:40 04/23/18 23:05 Additional Lab and Data: Lab Results 04/23/18 04/23/18 04/23/18 Range/Units 23:05 23:05 23:05 WBC 9.7 (3.5-10.8) 10^3/ul RBC 4.22 (4.00-5.40) 10^6/ul Hgb 13.8 L (14.0-18.0) g/dl Hct 40 L (42-52) % MCV 95 H (80-94) fL MCH 33 H (27-31) pg MCHC 35 (31-36) g/dl RDW 13 (10.5-15) % Plt Count 201 (150-450) 10^3/ul MPV 7.3 L (7.4-10.4) um3 Neut % (Auto) 84.4 H (38-83) % Lymph % (Auto) 7.6 L (25-47) % [place] % (Auto) 7.5 H (0-7) % Eos % (Auto) 0.2 (0-6) % Baso % (Auto) 0.3 (0-2) % Absolute Neuts (auto) 8.2 H (1.5-7.7) 10^3/ul Absolute Lymphs (auto) 0.7 L (1.0-4.8) 10^3/ul Absolute Monos (auto) 0.7 (0-0.8) 10^3/ul Absolute Eos (auto) 0 (0-0.6) 10^3/ul Absolute Basos (auto) 0 (0-0.2) 10^3/ul Absolute Nucleated RBC 0.1 10^3/ul Nucleated RBC % 0.7 INR (Anticoag Therapy) 1.05 H (0.77-1.02) APTT 29.2 (26.0-36.3) seconds Sodium 137 (135-145) mmol/L Potassium 3.8 (3.5-5.0) mmol/L Chloride 100 L (101-111) mmol/L Carbon Dioxide 28 (22-32) mmol/L Anion Gap 9 (2-11) mmol/L BUN 16 (6-24) mg/dL Creatinine 0.96 (0.67-1.17) mg/dL Est GFR ( Amer) 93.7 (>60) Est GFR (Non-Af Amer) 77.4 (>60) BUN/Creatinine Ratio 16.7 (8-20) Glucose 134 H (70-100) mg/dL Lactic Acid (0.5-2.0) mmol/L Calcium 9.8 (8.6-10.3) mg/dL Total Bilirubin 0.70 (0.2-1.0) mg/dL AST 16 (13-39) U/L ALT 19 (7-52) U/L Alkaline Phosphatase 68 (34-104) U/L Total Creatine Kinase 75 (10-223) U/L Troponin I 0.01 (<0.04) ng/mL C-Reactive Protein 21.64 H (<8.01) mg/L Total Protein 7.5 (6.4-8.9) g/dL Albumin 4.5 (3.2-5.2) g/dL Globulin 3.0 (2-4) g/dL Albumin/Globulin Ratio 1.5 (1-3) 04/23/18 04/24/18 Range/Units 23:05 02:02 WBC (3.5-10.8) 10^3/ul RBC (4.00-5.40) 10^6/ul Hgb (14.0-18.0) g/dl Hct (42-52) % MCV (80-94) fL MCH (27-31) pg MCHC (31-36) g/dl RDW (10.5-15) % Plt Count (150-450) 10^3/ul MPV (7.4-10.4) um3 Neut % (Auto) (38-83) % Lymph % (Auto) (25-47) % [place] % (Auto) (0-7) % Eos % (Auto) (0-6) % Baso % (Auto) (0-2) % Absolute Neuts (auto) (1.5-7.7) 10^3/ul Absolute Lymphs (auto) (1.0-4.8) 10^3/ul Absolute Monos (auto) (0-0.8) 10^3/ul Absolute Eos (auto) (0-0.6) 10^3/ul Absolute Basos (auto) (0-0.2) 10^3/ul Absolute Nucleated RBC 10^3/ul Nucleated RBC % INR (Anticoag Therapy) (0.77-1.02) APTT (26.0-36.3) seconds Sodium (135-145) mmol/L Potassium (3.5-5.0) mmol/L Chloride (101-111) mmol/L Carbon Dioxide (22-32) mmol/L Anion Gap (2-11) mmol/L BUN (6-24) mg/dL Creatinine (0.67-1.17) mg/dL Est GFR ( Amer) (>60) Est GFR (Non-Af Amer) (>60) BUN/Creatinine Ratio (8-20) Glucose (70-100) mg/dL Lactic Acid 1.4 0.7 (0.5-2.0) mmol/L Calcium (8.6-10.3) mg/dL Total Bilirubin (0.2-1.0) mg/dL AST (13-39) U/L ALT (7-52) U/L Alkaline Phosphatase (34-104) U/L Total Creatine Kinase (10-223) U/L Troponin I (<0.04) ng/mL C-Reactive Protein (<8.01) mg/L Total Protein (6.4-8.9) g/dL Albumin (3.2-5.2) g/dL Globulin (2-4) g/dL Albumin/Globulin Ratio (1-3) Microbiology and Other Data: Microbiology 04/24/18 03:20 Group A Streptococcus Rapid Screen - Final Throat Specimen received for Rapid Strep A Molecular testing Assess/Plan/Problems-Billing Assessment: This is a 68 year old male that presented with a complaint of one week of word- searching, headache and possible right sided facial droop being ruled out for CVA. - Patient Problems (1) TIA (transient ischemic attack) Code(s): G45.9 - TRANSIENT CEREBRAL ISCHEMIC ATTACK, UNSPECIFIED SNOMED Code(s ): 481347185 Comment: - CT negative, pending MRI brain - ECHO shows mobile plaque, cardio recommending CTA chest to rule out erosion of proximal aorta - Neuro consult appreciated, given symptoms with fever, will need LP to r/o meningeal infection, will consult ID and start ceftriaxone and acyclovir - Fioricet for headache PRN (2) Lumbar stenosis Code(s): M48.06 - SPINAL STENOSIS, LUMBAR REGION * DO NOT USE * SNOMED Code(s) : 17127038 Comment: - Stable, at baseline (3) HTN (hypertension) Code(s): I10 - ESSENTIAL (PRIMARY) HYPERTENSION SNOMED Code(s): 49904265 Comment: - Stable on home meds (4) Myasthenia gravis without (acute) exacerbation Code(s): G70.00 - MYASTHENIA GRAVIS WITHOUT (ACUTE) EXACERBATION SNOMED Code(s ): 42925791 Comment: - Stable, no exacerbation (5) Diabetes Code(s): E11.9 - TYPE 2 DIABETES MELLITUS WITHOUT COMPLICATIONS SNOMED Code(s) : 61222558 Comment: - Hold metformin, BG stable Status and Disposition: Remain inpatient
[2018-04-24] MEDS: Losartan TAB* 25 MG PO SCH (20:56)
[2018-04-24] MEDS: cefTRIAXone(*) 2 GM in NS 0.9% 100 ML* 100 ML IVPB SCH (21:13)
[2018-04-24] MEDS: Acyclovir IV(*) 800 MG in NS 0.9% 250 ML* 250 ML IVPB SCH (22:41)
[2018-04-25] MEDS: Acetaminophen TAB* 325 MG PO PRN (00:09)
[2018-04-25] MEDS: Acyclovir IV(*) 800 MG in NS 0.9% 250 ML* 250 ML IVPB SCH ×3 (05:48→22:02)
[2018-04-25] MEDS: Omeprazole CAP* 20 MG PO SCH (05:48)
--- NOTE | 2018-04-25 07:29 | RAD ---
INDICATION: Chest pain. Short of breath. Evaluate for aortic dissection. COMPARISON: Chest x-ray April 23, 2018 TECHNIQUE: Axial source images were obtained from the thoracic inlet to the hemidiaphragms following administration of [address] angiographic technique was utilized. Coronal and sagittal reconstructed images were acquired. CHEST FINDINGS: Neck/thyroid: The visualized neck to include the thyroid appear normal. Chest wall: There are no acute abnormalities of the bony thorax or chest wall. There is no supraclavicular, infraclavicular, or axillary lymphadenopathy. Lungs : There are no pulmonary parenchymal masses or infiltrates. The pulmonary interstitium appears normal. There are no endobronchial lesions. Cardiomediastinal structures: There is no CT evidence of acute pulmonary embolic disease. The heart is normal in size. There is no pericardial effusion. There is no evidence of aortic aneurysm or dissection. The great vessels arising from the aortic arch appear normal. There are minor atherosclerotic changes of the arch. There is no evidence of displaced intimal calcification. There is no mediastinal or hilar adenopathy. The esophagus appears normal. Pleura : There are no pleural-based masses or effusions. Other: None. IMPRESSION: NO CT EVIDENCE OF AORTIC ANEURYSM OR DISSECTION. NO CT EVIDENCE OF ACUTE PULMONARY EMBOLIC DISEASE
[2018-04-25] MEDS: cefTRIAXone(*) 2 GM in NS 0.9% 100 ML* 100 ML IVPB SCH ×2 (09:08→21:02)
[2018-04-25] MEDS: Pyridostigmine TAB* 60 MG PO SCH (09:12)
[2018-04-25] MEDS: amLODIPine TAB* 5 MG PO SCH (09:12)
[2018-04-25] MEDS: Aspirin EC TAB* 81 MG TAB.EC PO SCH (09:13)
[2018-04-25] MEDS: Losartan TAB* 25 MG PO SCH ×2 (09:13→21:05)
[2018-04-25] MEDS: Butalb/Acetamin/Caff TAB* 1 TAB PO PRN ×2 (09:14→18:17)
[2018-04-25] MEDS: PITAVASTATIN 1 MG PO SCH (09:16)
--- NOTE | 2018-04-25 12:01 | PN ---
Subjective Date of Service: 04/25/18 Interval History: Mr. Lenz still has occipital headaches that are relieved with Fioricet. The headaches are 8/10 in severity, non-radiating, and exacerbated by light. His speech seems to be back to baseline according to his partner. ROS: Denied chest pain, SOB, or palpitations. Objective Active Medications: Acetaminophen (Tylenol Tab*) 650 mg PO Q6H PRN PRN Reason: FEVER/PAIN Last Admin: 04/25/18 00:09 Dose: 650 mg Acetaminophen/Butalbital/Caffeine (Fioricet Tab*) 1 tab PO Q4H PRN PRN Reason: HEADACHE Last Admin: 04/25/18 09:14 Dose: 1 tab Amlodipine Besylate (Norvasc Tab*) 5 mg PO DAILY [facility] Last Admin: 04/25/18 09:12 Dose: 5 mg Aspirin (Aspirin Ec Tab*) 81 mg PO DAILY [facility] Last Admin: 04/25/18 09:13 Dose: 81 mg Sodium Chloride (Ns 0.9% 1000 Ml*) 1,000 mls @ 125 mls/hr IV PER RATE [facility] Last Admin: 04/24/18 17:28 Dose: 125 mls/hr Ceftriaxone Sodium 2 gm/ (Sodium Chloride) 100 mls @ 200 mls/hr IVPB Q12H [facility] Last Admin: 04/25/18 09:08 Dose: 200 mls/hr Acyclovir Sodium 800 mg/ (Sodium Chloride) 266 mls @ 266 mls/hr IVPB Q8H [facility] Last Admin: 04/25/18 05:48 Dose: 266 mls/hr Iodixanol (Visipaque* 320 (Contrast)) 100 ml IV ONCE [facility] Stop: 04/26/18 13:28 Last Admin: 04/24/18 20:15 Dose: 100 ml Losartan Potassium (Cozaar Tab*) 25 mg PO BID [facility] Last Admin: 04/25/18 09:13 Dose: 25 mg Melatonin (Melatonin) 3 mg PO BEDTIME PRN; Protocol PRN Reason: Sleep Omeprazole (Prilosec Cap*) 20 mg PO DAILY@0600 [facility] Last Admin: 04/25/18 05:48 Dose: 20 mg Ondansetron HCl (Zofran Odt Tab*) 4 mg PO Q6H PRN PRN Reason: n/v Pitavastatin (Livalo (Nf)) 1 mg PO DAILY [facility] Last Admin: 04/25/18 09:16 Dose: Not Given Pyridostigmine [place] (Mestinon Tab*) 60 mg PO DAILY [facility] Last Admin: 04/25/18 09:12 Dose: 60 mg Vital Signs 04/24/18 04/24/18 04/24/18 15:19 18:26 19:32 Temperature 99.0 F 100.6 F Pulse Rate 71 67 Respiratory 20 16 16 Rate Blood Pressure 130/50 127/53 (mmHg) O2 Sat by Pulse 93 98 Oximetry 04/24/18 04/24/18 04/24/18 20:00 20:32 23:31 Temperature 100.7 F Pulse Rate 68 Respiratory 18 18 18 Rate Blood Pressure 125/56 (mmHg) O2 Sat by Pulse 94 94 Oximetry 04/25/18 04/25/18 04/25/18 03:12 07:17 09:14 Temperature 98.6 F 99.1 F Pulse Rate 55 65 Respiratory 18 19 16 Rate Blood Pressure 111/49 138/59 (mmHg) O2 Sat by Pulse 97 96 Oximetry 04/25/18 11:15 Temperature 98.1 F Pulse Rate 57 Respiratory 20 Rate Blood Pressure 134/62 (mmHg) O2 Sat by Pulse 97 Oximetry Oxygen Devices in Use Now: None Neurology Exam: General: Well appearing man who is sitting in a chair in no acute distress. Partner at bedside. HEENT: Normocephelic/atraumatic, sclera anicteric Neck: Supple Chest: Clear to auscultation bilaterally Cardiovascular: Regular rate and rhythm without murmurs, rubs, gallops Extremities: No clubbing, cyanosis, or edema Neurological Findings: Awake, Alert, Oriented to person, place, time, and general circumstance. Speech: fluent without dysarthric, repetition intact. He is much better than yesterday. Cranial Nerve: PEERL, EOM intact, VFF, no nystagmus, face symmetric bilaterally , facial sensation intact, hearing intact to finger rub bilaterally, palate elevates symmetrically, tongue midline, SCM and Trapezius s/s. Motor: s/s throughout, proximal and distal extremities x4 tone/bulk normal Sensation: intact to LT/PP bilaterally upper and lower extremities Deep Tendon Reflex: 2+ symmetric in the upper/lower extremities, Babinski - down going Finger to nose, rapid alternating movements intact without tremor, no dysdiadochokinesia Gait: intact with good arm swing and stride Result Diagrams: 04/24/18 06:40 04/23/18 23:05 Additional Lab and Data: Lab Results 04/23/18 04/23/18 04/23/18 Range/Units 23:05 23:05 23:05 WBC 9.7 (3.5-10.8) 10^3/ul RBC 4.22 (4.00-5.40) 10^6/ul Hgb 13.8 L (14.0-18.0) g/dl Hct 40 L (42-52) % MCV 95 H (80-94) fL MCH 33 H (27-31) pg MCHC 35 (31-36) g/dl RDW 13 (10.5-15) % Plt Count 201 (150-450) 10^3/ul MPV 7.3 L (7.4-10.4) um3 Neut % (Auto) 84.4 H (38-83) % Lymph % (Auto) 7.6 L (25-47) % [place] % (Auto) 7.5 H (0-7) % Eos % (Auto) 0.2 (0-6) % Baso % (Auto) 0.3 (0-2) % Absolute Neuts (auto) 8.2 H (1.5-7.7) 10^3/ul Absolute Lymphs (auto) 0.7 L (1.0-4.8) 10^3/ul Absolute Monos (auto) 0.7 (0-0.8) 10^3/ul Absolute Eos (auto) 0 (0-0.6) 10^3/ul Absolute Basos (auto) 0 (0-0.2) 10^3/ul Absolute Nucleated RBC 0.1 10^3/ul Nucleated RBC % 0.7 INR (Anticoag Therapy) 1.05 H (0.77-1.02) APTT 29.2 (26.0-36.3) seconds Sodium 137 (135-145) mmol/L Potassium 3.8 (3.5-5.0) mmol/L Chloride 100 L (101-111) mmol/L Carbon Dioxide 28 (22-32) mmol/L Anion Gap 9 (2-11) mmol/L BUN 16 (6-24) mg/dL Creatinine 0.96 (0.67-1.17) mg/dL Est GFR ( Amer) 93.7 (>60) Est GFR (Non-Af Amer) 77.4 (>60) BUN/Creatinine Ratio 16.7 (8-20) Glucose 134 H (70-100) mg/dL Lactic Acid (0.5-2.0) mmol/L Calcium 9.8 (8.6-10.3) mg/dL Total Bilirubin 0.70 (0.2-1.0) mg/dL AST 16 (13-39) U/L ALT 19 (7-52) U/L Alkaline Phosphatase 68 (34-104) U/L Total Creatine Kinase 75 (10-223) U/L Troponin I 0.01 (<0.04) ng/mL C-Reactive Protein 21.64 H (<8.01) mg/L Total Protein 7.5 (6.4-8.9) g/dL Albumin 4.5 (3.2-5.2) g/dL Globulin 3.0 (2-4) g/dL Albumin/Globulin Ratio 1.5 (1-3) 04/23/18 04/24/18 Range/Units 23:05 02:02 WBC (3.5-10.8) 10^3/ul RBC (4.00-5.40) 10^6/ul Hgb (14.0-18.0) g/dl Hct (42-52) % MCV (80-94) fL MCH (27-31) pg MCHC (31-36) g/dl RDW (10.5-15) % Plt Count (150-450) 10^3/ul MPV (7.4-10.4) um3 Neut % (Auto) (38-83) % Lymph % (Auto) (25-47) % [place] % (Auto) (0-7) % Eos % (Auto) (0-6) % Baso % (Auto) (0-2) % Absolute Neuts (auto) (1.5-7.7) 10^3/ul Absolute Lymphs (auto) (1.0-4.8) 10^3/ul Absolute Monos (auto) (0-0.8) 10^3/ul Absolute Eos (auto) (0-0.6) 10^3/ul Absolute Basos (auto) (0-0.2) 10^3/ul Absolute Nucleated RBC 10^3/ul Nucleated RBC % INR (Anticoag Therapy) (0.77-1.02) APTT (26.0-36.3) seconds Sodium (135-145) mmol/L Potassium (3.5-5.0) mmol/L Chloride (101-111) mmol/L Carbon Dioxide (22-32) mmol/L Anion Gap (2-11) mmol/L BUN (6-24) mg/dL Creatinine (0.67-1.17) mg/dL Est GFR ( Amer) (>60) Est GFR (Non-Af Amer) (>60) BUN/Creatinine Ratio (8-20) Glucose (70-100) mg/dL Lactic Acid 1.4 0.7 (0.5-2.0) mmol/L Calcium (8.6-10.3) mg/dL Total Bilirubin (0.2-1.0) mg/dL AST (13-39) U/L ALT (7-52) U/L Alkaline Phosphatase (34-104) U/L Total Creatine Kinase (10-223) U/L Troponin I (<0.04) ng/mL C-Reactive Protein (<8.01) mg/L Total Protein (6.4-8.9) g/dL Albumin (3.2-5.2) g/dL Globulin (2-4) g/dL Albumin/Globulin Ratio (1-3) Microbiology and Other Data: Microbiology 04/24/18 03:20 Group A Streptococcus Rapid Screen - Final Throat Specimen received for Rapid Strep A Molecular testing Diagnostic Imaging: MRI brain without contrast completed on 04/24/2018: no evidence of ischemic or hemorrhagic stroke. TTE: Mobile calcification in proximal aorta. CTA chest: no PE or aortic dissection. Assessment/Plan Assessment: Mr. Raudel Lenz is a 68-year-old man with history of treated Lyme disease, myasthenia gravis not in an exacerbation, who presented with new onset headaches , fever, and intermittent slurred speech. The dysarthria has resolved but he still has low grade fever and headaches. 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 Transthoracic echo showed evidence of mobile mass in proximal aorta. CTA chest was negative for PE or aortic dissection/aneurysm. 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 1. Non-specific headache, fever, and intermittent dysarthria- can be related to ongoing viral [employer] infection. Rule out seizures. There was no embolic stroke on MRI. Mobile mass seen on Echo was not seen on CT chest. No sure if the TTE should be repeated. Defer to the primary team. - LP for CSF analysis. Obtain the following: gram stain and culture, cell count , protein, glucose, viral panel to check for HSV 1+2, enterococcus, Lyme PCR. - Continue Fioricet every 8 hours as needed for the next 24 hours. 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 - On Acylcovir and Rocephin. - Routine EEG - Neuro checks every 4 hours 2. Myasthenia Gravis- Stable on Mestinon. I will continue to follow.
[2018-04-25 13:50] LABS: Body Fluid Source Cerebral Spinal
--- NOTE | 2018-04-25 14:20 | PN ---
Subjective Date of Service: 04/25/18 Interval History: Patient seen and examined. S/P lumbar puncture with anesthesia today. Patient still with headache but has improved with Fioricet. Remains with low grade fevers, no chills, no n/v. No Sob, no chest pain, no further complaints. States he is feeling better than when he was admitted. Objective Active Medications: Acetaminophen (Tylenol Tab*) 650 mg PO Q6H PRN PRN Reason: FEVER/PAIN Last Admin: 04/25/18 00:09 Dose: 650 mg Acetaminophen/Butalbital/Caffeine (Fioricet Tab*) 1 tab PO Q4H PRN PRN Reason: HEADACHE Last Admin: 04/25/18 09:14 Dose: 1 tab Amlodipine Besylate (Norvasc Tab*) 5 mg PO DAILY [facility] Last Admin: 04/25/18 09:12 Dose: 5 mg Aspirin (Aspirin Ec Tab*) 81 mg PO DAILY [facility] Last Admin: 04/25/18 09:13 Dose: 81 mg Sodium Chloride (Ns 0.9% 1000 Ml*) 1,000 mls @ 125 mls/hr IV PER RATE [facility] Last Admin: 04/24/18 17:28 Dose: 125 mls/hr Ceftriaxone Sodium 2 gm/ (Sodium Chloride) 100 mls @ 200 mls/hr IVPB Q12H [facility] Last Admin: 04/25/18 09:08 Dose: 200 mls/hr Acyclovir Sodium 800 mg/ (Sodium Chloride) 266 mls @ 266 mls/hr IVPB Q8H [facility] Last Admin: 04/25/18 05:48 Dose: 266 mls/hr Iodixanol (Visipaque* 320 (Contrast)) 100 ml IV ONCE [facility] Stop: 04/26/18 13:28 Last Admin: 04/24/18 20:15 Dose: 100 ml Losartan Potassium (Cozaar Tab*) 25 mg PO BID [facility] Last Admin: 04/25/18 09:13 Dose: 25 mg Melatonin (Melatonin) 3 mg PO BEDTIME PRN; Protocol PRN Reason: Sleep Omeprazole (Prilosec Cap*) 20 mg PO DAILY@0600 [facility] Last Admin: 04/25/18 05:48 Dose: 20 mg Ondansetron HCl (Zofran Odt Tab*) 4 mg PO Q6H PRN PRN Reason: n/v Pitavastatin (Livalo (Nf)) 1 mg PO DAILY [facility] Last Admin: 04/25/18 09:16 Dose: Not Given Pyridostigmine [place] (Mestinon Tab*) 60 mg PO DAILY [facility] Last Admin: 04/25/18 09:12 Dose: 60 mg Vital Signs - 8 hr 04/25/18 04/25/18 04/25/18 07:17 09:14 11:15 Temperature 99.1 F 98.1 F Pulse Rate 65 57 Respiratory 19 16 20 Rate Blood Pressure 138/59 134/62 (mmHg) O2 Sat by Pulse 96 97 Oximetry 04/25/18 04/25/18 11:57 13:50 Temperature Pulse Rate Respiratory 16 16 Rate Blood Pressure (mmHg) O2 Sat by Pulse Oximetry Oxygen Devices in Use Now: None Appearance: Alert, well appearing, NAD Eyes: No Scleral Icterus, PERRLA Ears/Nose/Mouth/Throat: NL Teeth, Lips, Gums, Mucous Membranes Moist Neck: NL Appearance and Movements; NL JVP, Trachea Midline Respiratory: Symmetrical Chest Expansion and Respiratory Effort, Clear to Auscultation Cardiovascular: NL Sounds; No Murmurs; No JVD, RRR, No Edema Abdominal: NL Sounds; No Tenderness; No Distention Extremities: No Edema, No Clubbing, Cyanosis Skin: No Rash or Ulcers Neurological: Alert and Oriented x 3, NL Sensation, - Nutrition: Taking PO's Result Diagrams: 04/24/18 06:40 04/23/18 23:05 Additional Lab and Data: Lab Results 04/23/18 04/23/18 04/23/18 Range/Units 23:05 23:05 23:05 WBC 9.7 (3.5-10.8) 10^3/ul RBC 4.22 (4.00-5.40) 10^6/ul Hgb 13.8 L (14.0-18.0) g/dl Hct 40 L (42-52) % MCV 95 H (80-94) fL MCH 33 H (27-31) pg MCHC 35 (31-36) g/dl RDW 13 (10.5-15) % Plt Count 201 (150-450) 10^3/ul MPV 7.3 L (7.4-10.4) um3 Neut % (Auto) 84.4 H (38-83) % Lymph % (Auto) 7.6 L (25-47) % [place] % (Auto) 7.5 H (0-7) % Eos % (Auto) 0.2 (0-6) % Baso % (Auto) 0.3 (0-2) % Absolute Neuts (auto) 8.2 H (1.5-7.7) 10^3/ul Absolute Lymphs (auto) 0.7 L (1.0-4.8) 10^3/ul Absolute Monos (auto) 0.7 (0-0.8) 10^3/ul Absolute Eos (auto) 0 (0-0.6) 10^3/ul Absolute Basos (auto) 0 (0-0.2) 10^3/ul Absolute Nucleated RBC 0.1 10^3/ul Nucleated RBC % 0.7 INR (Anticoag Therapy) 1.05 H (0.77-1.02) APTT 29.2 (26.0-36.3) seconds Sodium 137 (135-145) mmol/L Potassium 3.8 (3.5-5.0) mmol/L Chloride 100 L (101-111) mmol/L Carbon Dioxide 28 (22-32) mmol/L Anion Gap 9 (2-11) mmol/L BUN 16 (6-24) mg/dL Creatinine 0.96 (0.67-1.17) mg/dL Est GFR ( Amer) 93.7 (>60) Est GFR (Non-Af Amer) 77.4 (>60) BUN/Creatinine Ratio 16.7 (8-20) Glucose 134 H (70-100) mg/dL Lactic Acid (0.5-2.0) mmol/L Calcium 9.8 (8.6-10.3) mg/dL Total Bilirubin 0.70 (0.2-1.0) mg/dL AST 16 (13-39) U/L ALT 19 (7-52) U/L Alkaline Phosphatase 68 (34-104) U/L Total Creatine Kinase 75 (10-223) U/L Troponin I 0.01 (<0.04) ng/mL C-Reactive Protein 21.64 H (<8.01) mg/L Total Protein 7.5 (6.4-8.9) g/dL Albumin 4.5 (3.2-5.2) g/dL Globulin 3.0 (2-4) g/dL Albumin/Globulin Ratio 1.5 (1-3) 04/23/18 04/24/18 Range/Units 23:05 02:02 WBC (3.5-10.8) 10^3/ul RBC (4.00-5.40) 10^6/ul Hgb (14.0-18.0) g/dl Hct (42-52) % MCV (80-94) fL MCH (27-31) pg MCHC (31-36) g/dl RDW (10.5-15) % Plt Count (150-450) 10^3/ul MPV (7.4-10.4) um3 Neut % (Auto) (38-83) % Lymph % (Auto) (25-47) % [place] % (Auto) (0-7) % Eos % (Auto) (0-6) % Baso % (Auto) (0-2) % Absolute Neuts (auto) (1.5-7.7) 10^3/ul Absolute Lymphs (auto) (1.0-4.8) 10^3/ul Absolute Monos (auto) (0-0.8) 10^3/ul Absolute Eos (auto) (0-0.6) 10^3/ul Absolute Basos (auto) (0-0.2) 10^3/ul Absolute Nucleated RBC 10^3/ul Nucleated RBC % INR (Anticoag Therapy) (0.77-1.02) APTT (26.0-36.3) seconds Sodium (135-145) mmol/L Potassium (3.5-5.0) mmol/L Chloride (101-111) mmol/L Carbon Dioxide (22-32) mmol/L Anion Gap (2-11) mmol/L BUN (6-24) mg/dL Creatinine (0.67-1.17) mg/dL Est GFR ( Amer) (>60) Est GFR (Non-Af Amer) (>60) BUN/Creatinine Ratio (8-20) Glucose (70-100) mg/dL Lactic Acid 1.4 0.7 (0.5-2.0) mmol/L Calcium (8.6-10.3) mg/dL Total Bilirubin (0.2-1.0) mg/dL AST (13-39) U/L ALT (7-52) U/L Alkaline Phosphatase (34-104) U/L Total Creatine Kinase (10-223) U/L Troponin I (<0.04) ng/mL C-Reactive Protein (<8.01) mg/L Total Protein (6.4-8.9) g/dL Albumin (3.2-5.2) g/dL Globulin (2-4) g/dL Albumin/Globulin Ratio (1-3) Microbiology and Other Data: Microbiology 04/24/18 03:20 Group A Streptococcus Rapid Screen - Final Throat Specimen received for Rapid Strep A Molecular testing Laboratory Results - last 24 hr 04/24/18 04/25/18 04/25/18 19:41 13:37 13:37 Urine Color Yellow Urine Appearance Clear Urine pH 6.0 Ur Specific [place] 1.012 Urine Protein Negative Urine Ketones 1+ A Urine Blood 1+ A Urine Nitrate Negative Urine Bilirubin Negative Urine Urobilinogen Negative Ur Leukocyte Esterase Negative Urine WBC (Auto) Trace(0-5/hpf) Urine RBC (Auto) Trace(0-2/hpf) Urine Bacteria Absent Urine Glucose Negative Fluid Source Cerebral spinal Fluid Volume 2 Fluid Color Colorless Fluid Appearance Clear Fluid WBC 250 H* Fluid RBC 1.5 Fluid Tot Cell Count 100 Fluid Neutrophils 9 Fluid Lymphocytes 63 Fluid Monocytes 28 Fluid Comment CSF Cell Count Tube # 4 CSF Glucose 62 CSF Total Protein 92 H Diagnostic Imaging: MRI brain without contrast completed on 04/24/2018: no evidence of ischemic or hemorrhagic stroke. TTE: Mobile calcification in proximal aorta. CTA chest: no PE or aortic dissection. Assess/Plan/Problems-Billing Assessment: Mr. Raudel Lenz is a 68-year-old man with history of treated Lyme disease, myasthenia gravis not in an exacerbation, who presented with new onset headaches , fever, word finding difficulty and intermittent slurred speech. - Patient Problems (1) Viral meningitis, unspecified Code(s): A87.9 - VIRAL MENINGITIS, UNSPECIFIED SNOMED Code(s): 74340336 Comment: - LP today initially reveals elevated protein of 92 and WBC count of 250, in line with viral meningitis, pending diff and viral studies - Continue Acyclovir and Ceftriaxone, ID consultd, Fioricet for headache PRN (2) TIA (transient ischemic attack) Code(s): G45.9 - TRANSIENT CEREBRAL ISCHEMIC ATTACK, UNSPECIFIED SNOMED Code(s ): 374862451 Comment: - CT head and MRI negative for CVA - ECHO shows mobile plaque - CTA chest as above, no aortic ulceration or dissection associate with plaque in the proximal aorta - Will likely need ASA and plavix for 30 days (3) Lumbar stenosis Code(s): M48.06 - SPINAL STENOSIS, LUMBAR REGION * DO NOT USE * SNOMED Code(s) : 98713789 Comment: - Stable, at baseline (4) HTN (hypertension) Code(s): I10 - ESSENTIAL (PRIMARY) HYPERTENSION SNOMED Code(s): 11622260 Comment: - Stable on home meds (5) Myasthenia gravis without (acute) exacerbation Code(s): G70.00 - MYASTHENIA GRAVIS WITHOUT (ACUTE) EXACERBATION SNOMED Code(s ): 55857262 Comment: - Stable, no exacerbation (6) Diabetes Code(s): E11.9 - TYPE 2 DIABETES MELLITUS WITHOUT COMPLICATIONS SNOMED Code(s) : 22397068 Comment: - Hold metformin, BG stable Status and Disposition: Remain inpatient, continue atbx and antivirals with supportive care. Dispo to home when medically stable.
[2018-04-25] MEDS: NS 0.9% 1000 ML* 1,000 ML IV SCH (14:51)
--- NOTE | 2018-04-25 16:02 | PM ---
[facility] PROCEDURE NOTE DATE OF PROCEDURE: 04/25/2018 - ROOM #445 CHIEF COMPLAINT: Fever and headaches. HISTORY: The patient is a 68-year-old male who was admitted to the hospital for headaches and fever. As part of the work-up, the neurologist had attempted to do a diagnostic lumbar puncture. I received a call today from Dr. Melendrez who said that he had attempted a lumbar puncture and was unable to obtain cerebrospinal fluid. The patient has had a prior laminectomy done last year. He asked for my assistance in performing the diagnostic lumbar puncture. I arrived to the patient's room, 445, bed 2, and the patient and I discussed the procedure. I explained to him in detail the lumbar puncture and the risks, the benefits, and alternatives. Informed consent was obtained. PROCEDURE: In the right lateral decubitus position, his low back was prepped and draped in the usual sterile fashion. Two cc of 1 percent Lidocaine was used for local anesthesia at the L2-3 interspace above the level of his laminectomy. I used a 22 gauge spinal needle and directed to the interspinous space at L2-3. I identified the subarachnoid space with free flow of clear cerebrospinal fluid. There was no paresthesias or blood noted. I then proceeded to obtain an opening pressure which was 26.5 cm. I then collected four vials of cerebrospinal fluid for laboratory analysis per Dr. Melendrez's orders. The needle was withdrawn. The patient tolerated the procedure well. [id number]/CPS #: [id number] MTDD
[2018-04-26] MEDS: NS 0.9% 1000 ML* 1,000 ML IV SCH ×3 (01:12→21:17)
[2018-04-26] MEDS ORDERED: NS 0.9% 250 ML* 250 ML ONE (05:32)
[2018-04-26] MEDS: Acyclovir IV(*) 800 MG in NS 0.9% 250 ML* 250 ML IVPB SCH ×3 (05:40→21:08)
[2018-04-26] MEDS: Omeprazole CAP* 20 MG PO SCH (05:41)
[2018-04-26] MEDS: Butalb/Acetamin/Caff TAB* 1 TAB PO PRN ×2 (05:42→21:23)
[2018-04-26 09:00] LABS: ABS Basophils 0 10^3/ul (0-0.2); ABS Eosinophils 0.2 10^3/ul (0-0.6); ABS Lymphocytes 1.1 10^3/ul (1.0-4.8); ABS Monocytes 0.6 10^3/ul (0-0.8); ABS Neutrophils 4.6 10^3/ul (1.5-7.7); ABS Nucleated RBC 0 10^3/ul; Hematocrit 34 % (42-52); Hemoglobin 12.1 g/dl (14.0-18.0); Lymphocyte % 16.9 % (25-47); Mean Corpuscular HGB Conc 36 g/dl (31-36); Mean Corpuscular Hemoglobin 33 pg (27-31); Mean Corpuscular Volume 93 fL (80-94); Mean Platelet Volume 7.3 um3 (7.4-10.4); Nucleated Red Blood Cells % 0; Platelet Count 163 10^3/ul (150-450); Red Blood Count 3.65 10^6/ul (4.00-5.40); Red Cell Distribution Width 13 % (10.5-15); White Blood Count 6.5 10^3/ul (3.5-10.8)
[2018-04-26] MEDS: cefTRIAXone(*) 2 GM in NS 0.9% 100 ML* 100 ML IVPB SCH (09:13)
[2018-04-26] MEDS: Losartan TAB* 25 MG PO SCH ×2 (09:17→21:08)
[2018-04-26] MEDS: amLODIPine TAB* 5 MG PO SCH (09:17)
[2018-04-26] MEDS: Aspirin EC TAB* 81 MG TAB.EC PO SCH (09:17)
[2018-04-26] MEDS: PITAVASTATIN 1 MG PO SCH (09:17)
[2018-04-26] MEDS: Pyridostigmine TAB* 60 MG PO SCH (09:17)
--- NOTE | 2018-04-26 10:01 | PN ---
Subjective Date of Service: 04/26/18 Interval History: He had a 4/10 bifrontal headache this morning. Fioricet seems to be controlling his pain. He is resting comfortable and content with the care he has received. ROS: He denied any slurred speech, focal weakness, or paresthesia. He denied any visual disturbance. He has no positional related headaches. He denied any CP, SOB, or palpitation. Objective Active Medications: Acetaminophen (Tylenol Tab*) 650 mg PO Q6H PRN PRN Reason: FEVER/PAIN Last Admin: 04/25/18 00:09 Dose: 650 mg Acetaminophen/Butalbital/Caffeine (Fioricet Tab*) 1 tab PO Q4H PRN PRN Reason: HEADACHE Last Admin: 04/26/18 05:42 Dose: 1 tab Amlodipine Besylate (Norvasc Tab*) 5 mg PO DAILY [facility] Last Admin: 04/26/18 09:17 Dose: 5 mg Aspirin (Aspirin Ec Tab*) 81 mg PO DAILY [facility] Last Admin: 04/26/18 09:17 Dose: 81 mg Sodium Chloride (Ns 0.9% 1000 Ml*) 1,000 mls @ 125 mls/hr IV PER RATE [facility] Last Admin: 04/26/18 01:12 Dose: 125 mls/hr Ceftriaxone Sodium 2 gm/ (Sodium Chloride) 100 mls @ 200 mls/hr IVPB Q12H [facility] Last Admin: 04/26/18 09:13 Dose: 200 mls/hr Acyclovir Sodium 800 mg/ (Sodium Chloride) 266 mls @ 266 mls/hr IVPB Q8H [facility] Last Admin: 04/26/18 05:40 Dose: 266 mls/hr Iodixanol (Visipaque* 320 (Contrast)) 100 ml IV ONCE [facility] Stop: 04/26/18 13:28 Last Admin: 04/24/18 20:15 Dose: 100 ml Losartan Potassium (Cozaar Tab*) 25 mg PO BID [facility] Last Admin: 04/26/18 09:17 Dose: 25 mg Melatonin (Melatonin) 3 mg PO BEDTIME PRN; Protocol PRN Reason: Sleep Omeprazole (Prilosec Cap*) 20 mg PO DAILY@0600 [facility] Last Admin: 04/26/18 05:41 Dose: 20 mg Ondansetron HCl (Zofran Odt Tab*) 4 mg PO Q6H PRN PRN Reason: n/v Pitavastatin (Livalo (Nf)) 1 mg PO DAILY [facility] Last Admin: 04/26/18 09:17 Dose: 1 mg Pyridostigmine [place] (Mestinon Tab*) 60 mg PO DAILY [facility] Last Admin: 04/26/18 09:17 Dose: 60 mg Vital Signs 04/25/18 04/25/18 04/25/18 11:15 11:57 13:50 Temperature 98.1 F Pulse Rate 57 Respiratory 20 16 16 Rate Blood Pressure 134/62 (mmHg) O2 Sat by Pulse 97 Oximetry 04/25/18 04/25/18 04/25/18 15:34 18:17 19:20 Temperature 98.2 F 98.8 F Pulse Rate 59 59 Respiratory 20 16 20 Rate Blood Pressure 132/58 143/59 (mmHg) O2 Sat by Pulse 96 99 Oximetry 04/25/18 04/25/18 04/25/18 19:51 20:20 23:29 Temperature 98.3 F Pulse Rate 58 Respiratory 20 20 16 Rate Blood Pressure 131/59 (mmHg) O2 Sat by Pulse 99 99 Oximetry 04/26/18 04/26/18 04/26/18 03:34 05:42 07:28 Temperature 98.1 F 98.1 F Pulse Rate 54 57 Respiratory 16 18 20 Rate Blood Pressure 133/61 122/51 (mmHg) O2 Sat by Pulse 95 95 Oximetry 04/26/18 04/26/18 08:00 09:50 Temperature Pulse Rate Respiratory 18 18 Rate Blood Pressure (mmHg) O2 Sat by Pulse 95 Oximetry Oxygen Devices in Use Now: None Neurology Exam: General: Well appearing man who is sitting in a chair in no acute distress. HEENT: Normocephelic/atraumatic, sclera anicteric Neck: Supple Chest: Clear to auscultation bilaterally Cardiovascular: Regular rate and rhythm without murmurs, rubs, gallops Extremities: No clubbing, cyanosis, or edema Neurological Findings: Awake, Alert, Oriented to person, place, time, and general circumstance. Speech: fluent without dysarthric, repetition intact. He is much better than yesterday. Cranial Nerve: PEERL, EOM intact, VFF, no nystagmus. Mild right facial droop but his MRI brain did not show any area of restricted diffusion. Motor: s/s throughout, proximal and distal extremities x4 tone/bulk normal Sensation: intact to LT/PP bilaterally upper and lower extremities Deep Tendon Reflex: 2+ symmetric in the upper/lower extremities, Babinski - down going Finger to nose, rapid alternating movements intact without tremor, no dysdiadochokinesia Gait: intact with good arm swing and stride Result Diagrams: 04/26/18 08:51 04/26/18 08:51 Additional Lab and Data: Lab Results 04/23/18 04/23/18 04/23/18 Range/Units 23:05 23:05 23:05 WBC 9.7 (3.5-10.8) 10^3/ul RBC 4.22 (4.00-5.40) 10^6/ul Hgb 13.8 L (14.0-18.0) g/dl Hct 40 L (42-52) % MCV 95 H (80-94) fL MCH 33 H (27-31) pg MCHC 35 (31-36) g/dl RDW 13 (10.5-15) % Plt Count 201 (150-450) 10^3/ul MPV 7.3 L (7.4-10.4) um3 Neut % (Auto) 84.4 H (38-83) % Lymph % (Auto) 7.6 L (25-47) % [place] % (Auto) 7.5 H (0-7) % Eos % (Auto) 0.2 (0-6) % Baso % (Auto) 0.3 (0-2) % Absolute Neuts (auto) 8.2 H (1.5-7.7) 10^3/ul Absolute Lymphs (auto) 0.7 L (1.0-4.8) 10^3/ul Absolute Monos (auto) 0.7 (0-0.8) 10^3/ul Absolute Eos (auto) 0 (0-0.6) 10^3/ul Absolute Basos (auto) 0 (0-0.2) 10^3/ul Absolute Nucleated RBC 0.1 10^3/ul Nucleated RBC % 0.7 INR (Anticoag Therapy) 1.05 H (0.77-1.02) APTT 29.2 (26.0-36.3) seconds Sodium 137 (135-145) mmol/L Potassium 3.8 (3.5-5.0) mmol/L Chloride 100 L (101-111) mmol/L Carbon Dioxide 28 (22-32) mmol/L Anion Gap 9 (2-11) mmol/L BUN 16 (6-24) mg/dL Creatinine 0.96 (0.67-1.17) mg/dL Est GFR ( Amer) 93.7 (>60) Est GFR (Non-Af Amer) 77.4 (>60) BUN/Creatinine Ratio 16.7 (8-20) Glucose 134 H (70-100) mg/dL Lactic Acid (0.5-2.0) mmol/L Calcium 9.8 (8.6-10.3) mg/dL Total Bilirubin 0.70 (0.2-1.0) mg/dL AST 16 (13-39) U/L ALT 19 (7-52) U/L Alkaline Phosphatase 68 (34-104) U/L Total Creatine Kinase 75 (10-223) U/L Troponin I 0.01 (<0.04) ng/mL C-Reactive Protein 21.64 H (<8.01) mg/L Total Protein 7.5 (6.4-8.9) g/dL Albumin 4.5 (3.2-5.2) g/dL Globulin 3.0 (2-4) g/dL Albumin/Globulin Ratio 1.5 (1-3) 04/23/18 04/24/18 Range/Units 23:05 02:02 WBC (3.5-10.8) 10^3/ul RBC (4.00-5.40) 10^6/ul Hgb (14.0-18.0) g/dl Hct (42-52) % MCV (80-94) fL MCH (27-31) pg MCHC (31-36) g/dl RDW (10.5-15) % Plt Count (150-450) 10^3/ul MPV (7.4-10.4) um3 Neut % (Auto) (38-83) % Lymph % (Auto) (25-47) % [place] % (Auto) (0-7) % Eos % (Auto) (0-6) % Baso % (Auto) (0-2) % Absolute Neuts (auto) (1.5-7.7) 10^3/ul Absolute Lymphs (auto) (1.0-4.8) 10^3/ul Absolute Monos (auto) (0-0.8) 10^3/ul Absolute Eos (auto) (0-0.6) 10^3/ul Absolute Basos (auto) (0-0.2) 10^3/ul Absolute Nucleated RBC 10^3/ul Nucleated RBC % INR (Anticoag Therapy) (0.77-1.02) APTT (26.0-36.3) seconds Sodium (135-145) mmol/L Potassium (3.5-5.0) mmol/L Chloride (101-111) mmol/L Carbon Dioxide (22-32) mmol/L Anion Gap (2-11) mmol/L BUN (6-24) mg/dL Creatinine (0.67-1.17) mg/dL Est GFR ( Amer) (>60) Est GFR (Non-Af Amer) (>60) BUN/Creatinine Ratio (8-20) Glucose (70-100) mg/dL Lactic Acid 1.4 0.7 (0.5-2.0) mmol/L Calcium (8.6-10.3) mg/dL Total Bilirubin (0.2-1.0) mg/dL AST (13-39) U/L ALT (7-52) U/L Alkaline Phosphatase (34-104) U/L Total Creatine Kinase (10-223) U/L Troponin I (<0.04) ng/mL C-Reactive Protein (<8.01) mg/L Total Protein (6.4-8.9) g/dL Albumin (3.2-5.2) g/dL Globulin (2-4) g/dL Albumin/Globulin Ratio (1-3) CSF analysis: Gram stain: No bacteria WBC: 250 Lympocyte: 62 Cell count: 100 Protein: 92 Glucose: 62 Microbiology and Other Data: Microbiology 04/24/18 03:20 Group A Streptococcus Rapid Screen - Final Throat Specimen received for Rapid Strep A Molecular testing Laboratory Results - last 24 hr 04/24/18 04/25/18 04/25/18 19:41 13:37 13:37 Urine Color Yellow Urine Appearance Clear Urine pH 6.0 Ur Specific [place] 1.012 Urine Protein Negative Urine Ketones 1+ A Urine Blood 1+ A Urine Nitrate Negative Urine Bilirubin Negative Urine Urobilinogen Negative Ur Leukocyte Esterase Negative Urine WBC (Auto) Trace(0-5/hpf) Urine RBC (Auto) Trace(0-2/hpf) Urine Bacteria Absent Urine Glucose Negative Fluid Source Cerebral spinal Fluid Volume 2 Fluid Color Colorless Fluid Appearance Clear Fluid WBC 250 H* Fluid RBC 1.5 Fluid Tot Cell Count 100 Fluid Neutrophils 9 Fluid Lymphocytes 63 Fluid Monocytes 28 Fluid Comment CSF Cell Count Tube # 4 CSF Glucose 62 CSF Total Protein 92 H Diagnostic Imaging: MRI brain without contrast completed on 04/24/2018: no evidence of ischemic or hemorrhagic stroke. TTE 04/24/2018: Mobile calcification in proximal aorta. EF 65%. Atrial septal aneurysm with no PFO. CTA chest: no PE or aortic dissection. Assessment/Plan Assessment: Mr. Raudel Lenz is a 68-year-old man with history of treated Lyme disease, myasthenia gravis not in an exacerbation, who presented with new onset headaches , fever, word finding difficulty and intermittent slurred speech. 1. Acute viral meningitis: this is the cause for his headache and fever CSF gram stain: no bacteria, lymphocytic predominant. HSV 1-2 pending. On full dose Acyclovir. - Please make sure he is getting enough fluids to prevent any renal injury while on Acyclovir. - Spoke to laboratory this morning and the HSV was sent to [place] last evening and may take up to 24-48 hours. - Added cryptococcus antigen on CSF - Defer antiviral and antibiotic therapy to ID but I don't think he needs Rocephin at this point - Continue Fioricet every 8 hours as needed for headache for the next 24 hours. Then switch to acetaminophen 650 mg PO every 8 hours to prevent any rebound - headache that can be caused by Fioricet. 2. Suspect TIA to the left MCA vascular territory secondary to a cardio-embolic phenomenon related to mobile calcification in the proximal aorta- no growth on blood culture. If he didn't have the finding on 2D Echo, I would assume his neurological deficits are related to increase intracranial pressure in the setting of meningitis. However, we agreed to treat for primary stroke prevention. - DAPT with aspirin 81 mg daily and Plavix 75 mg daily. Discontinue Plavix after 30 days (05/26/2018). LDL 45. Continue Pitavastatin. 3. Myasthenia Gravis- Stable on Mestinon. I will sign off but we are available for any questions or concerns. He may be able to go home on Acyclovir and someone can contact him once the HSV PCR comes back. If negative, he can discontinue the acyclovir but if positive, he should stay on it for a total of 14 days. He has an appointment to see Dr. Melendez next month.
[2018-04-26] MEDS: Clopidogrel TAB* 75 MG PO SCH (11:28)
--- NOTE | 2018-04-26 12:40 | PN ---
Subjective Date of Service: 04/26/18 Interval History: Patient seen and examined. Feeling well, headache improving. No fevers or chills today. Was able to ambulate to bathroom and washup without issue. Denies SOB, no chest pain , no dizziness, no blurry vision. Objective Active Medications: Acetaminophen (Tylenol Tab*) 650 mg PO Q6H PRN PRN Reason: FEVER/PAIN Last Admin: 04/25/18 00:09 Dose: 650 mg Acetaminophen/Butalbital/Caffeine (Fioricet Tab*) 1 tab PO Q4H PRN PRN Reason: HEADACHE Last Admin: 04/26/18 05:42 Dose: 1 tab Amlodipine Besylate (Norvasc Tab*) 5 mg PO DAILY [facility] Last Admin: 04/26/18 09:17 Dose: 5 mg Aspirin (Aspirin Ec Tab*) 81 mg PO DAILY [facility] Last Admin: 04/26/18 09:17 Dose: 81 mg Clopidogrel Bisulfate (Plavix Tab*) 75 mg PO DAILY [facility] Stop: 05/26/18 00:00 Last Admin: 04/26/18 11:28 Dose: 75 mg Sodium Chloride (Ns 0.9% 1000 Ml*) 1,000 mls @ 125 mls/hr IV PER RATE [facility] Last Admin: 04/26/18 11:27 Dose: 125 mls/hr Ceftriaxone Sodium 2 gm/ (Sodium Chloride) 100 mls @ 200 mls/hr IVPB Q12H [facility] Last Admin: 04/26/18 09:13 Dose: 200 mls/hr Acyclovir Sodium 800 mg/ (Sodium Chloride) 266 mls @ 266 mls/hr IVPB Q8H [facility] Last Admin: 04/26/18 05:40 Dose: 266 mls/hr Iodixanol (Visipaque* 320 (Contrast)) 100 ml IV ONCE [facility] Stop: 04/26/18 13:28 Last Admin: 04/24/18 20:15 Dose: 100 ml Losartan Potassium (Cozaar Tab*) 25 mg PO BID [facility] Last Admin: 04/26/18 09:17 Dose: 25 mg Melatonin (Melatonin) 3 mg PO BEDTIME PRN; Protocol PRN Reason: Sleep Ondansetron HCl (Zofran Odt Tab*) 4 mg PO Q6H PRN PRN Reason: n/v Pantoprazole Sodium (Protonix Tab (Nf)) 40 mg PO DAILY [facility] Pitavastatin (Livalo (Nf)) 1 mg PO DAILY [facility] Last Admin: 04/26/18 09:17 Dose: 1 mg Pyridostigmine [place] (Mestinon Tab*) 60 mg PO DAILY [facility] Last Admin: 04/26/18 09:17 Dose: 60 mg Vital Signs - 8 hr 04/26/18 04/26/18 04/26/18 05:42 07:28 08:00 Temperature 98.1 F Pulse Rate 57 Respiratory 18 20 18 Rate Blood Pressure 122/51 (mmHg) O2 Sat by Pulse 95 95 Oximetry 04/26/18 04/26/18 09:50 11:32 Temperature 97.6 F Pulse Rate 56 Respiratory 18 20 Rate Blood Pressure 129/63 (mmHg) O2 Sat by Pulse 98 Oximetry Oxygen Devices in Use Now: None Appearance: Alert, NAD Eyes: No Scleral Icterus, PERRLA Ears/Nose/Mouth/Throat: NL Teeth, Lips, Gums Neck: NL Appearance and Movements; NL JVP, Trachea Midline Respiratory: Symmetrical Chest Expansion and Respiratory Effort, Clear to Auscultation Cardiovascular: NL Sounds; No Murmurs; No JVD, RRR, No Edema Extremities: No Edema, No Clubbing, Cyanosis Skin: No Rash or Ulcers Neurological: Alert and Oriented x 3, NL Muscle Strength and Tone Nutrition: Taking PO's Result Diagrams: 04/26/18 08:51 04/26/18 08:51 Additional Lab and Data: Lab Results 04/23/18 04/23/18 04/23/18 Range/Units 23:05 23:05 23:05 WBC 9.7 (3.5-10.8) 10^3/ul RBC 4.22 (4.00-5.40) 10^6/ul Hgb 13.8 L (14.0-18.0) g/dl Hct 40 L (42-52) % MCV 95 H (80-94) fL MCH 33 H (27-31) pg MCHC 35 (31-36) g/dl RDW 13 (10.5-15) % Plt Count 201 (150-450) 10^3/ul MPV 7.3 L (7.4-10.4) um3 Neut % (Auto) 84.4 H (38-83) % Lymph % (Auto) 7.6 L (25-47) % [place] % (Auto) 7.5 H (0-7) % Eos % (Auto) 0.2 (0-6) % Baso % (Auto) 0.3 (0-2) % Absolute Neuts (auto) 8.2 H (1.5-7.7) 10^3/ul Absolute Lymphs (auto) 0.7 L (1.0-4.8) 10^3/ul Absolute Monos (auto) 0.7 (0-0.8) 10^3/ul Absolute Eos (auto) 0 (0-0.6) 10^3/ul Absolute Basos (auto) 0 (0-0.2) 10^3/ul Absolute Nucleated RBC 0.1 10^3/ul Nucleated RBC % 0.7 INR (Anticoag Therapy) 1.05 H (0.77-1.02) APTT 29.2 (26.0-36.3) seconds Sodium 137 (135-145) mmol/L Potassium 3.8 (3.5-5.0) mmol/L Chloride 100 L (101-111) mmol/L Carbon Dioxide 28 (22-32) mmol/L Anion Gap 9 (2-11) mmol/L BUN 16 (6-24) mg/dL Creatinine 0.96 (0.67-1.17) mg/dL Est GFR ( Amer) 93.7 (>60) Est GFR (Non-Af Amer) 77.4 (>60) BUN/Creatinine Ratio 16.7 (8-20) Glucose 134 H (70-100) mg/dL Lactic Acid (0.5-2.0) mmol/L Calcium 9.8 (8.6-10.3) mg/dL Total Bilirubin 0.70 (0.2-1.0) mg/dL AST 16 (13-39) U/L ALT 19 (7-52) U/L Alkaline Phosphatase 68 (34-104) U/L Total Creatine Kinase 75 (10-223) U/L Troponin I 0.01 (<0.04) ng/mL C-Reactive Protein 21.64 H (<8.01) mg/L Total Protein 7.5 (6.4-8.9) g/dL Albumin 4.5 (3.2-5.2) g/dL Globulin 3.0 (2-4) g/dL Albumin/Globulin Ratio 1.5 (1-3) 04/23/18 04/24/18 Range/Units 23:05 02:02 WBC (3.5-10.8) 10^3/ul RBC (4.00-5.40) 10^6/ul Hgb (14.0-18.0) g/dl Hct (42-52) % MCV (80-94) fL MCH (27-31) pg MCHC (31-36) g/dl RDW (10.5-15) % Plt Count (150-450) 10^3/ul MPV (7.4-10.4) um3 Neut % (Auto) (38-83) % Lymph % (Auto) (25-47) % [place] % (Auto) (0-7) % Eos % (Auto) (0-6) % Baso % (Auto) (0-2) % Absolute Neuts (auto) (1.5-7.7) 10^3/ul Absolute Lymphs (auto) (1.0-4.8) 10^3/ul Absolute Monos (auto) (0-0.8) 10^3/ul Absolute Eos (auto) (0-0.6) 10^3/ul Absolute Basos (auto) (0-0.2) 10^3/ul Absolute Nucleated RBC 10^3/ul Nucleated RBC % INR (Anticoag Therapy) (0.77-1.02) APTT (26.0-36.3) seconds Sodium (135-145) mmol/L Potassium (3.5-5.0) mmol/L Chloride (101-111) mmol/L Carbon Dioxide (22-32) mmol/L Anion Gap (2-11) mmol/L BUN (6-24) mg/dL Creatinine (0.67-1.17) mg/dL Est GFR ( Amer) (>60) Est GFR (Non-Af Amer) (>60) BUN/Creatinine Ratio (8-20) Glucose (70-100) mg/dL Lactic Acid 1.4 0.7 (0.5-2.0) mmol/L Calcium (8.6-10.3) mg/dL Total Bilirubin (0.2-1.0) mg/dL AST (13-39) U/L ALT (7-52) U/L Alkaline Phosphatase (34-104) U/L Total Creatine Kinase (10-223) U/L Troponin I (<0.04) ng/mL C-Reactive Protein (<8.01) mg/L Total Protein (6.4-8.9) g/dL Albumin (3.2-5.2) g/dL Globulin (2-4) g/dL Albumin/Globulin Ratio (1-3) CSF analysis: Gram stain: No bacteria WBC: 250 Lympocyte: 62 Cell count: 100 Protein: 92 Glucose: 62 Microbiology and Other Data: Microbiology 04/24/18 03:20 Group A Streptococcus Rapid Screen - Final Throat Specimen received for Rapid Strep A Molecular testing Laboratory Results - last 24 hr 04/24/18 04/25/18 04/25/18 19:41 13:37 13:37 Urine Color Yellow Urine Appearance Clear Urine pH 6.0 Ur Specific [place] 1.012 Urine Protein Negative Urine Ketones 1+ A Urine Blood 1+ A Urine Nitrate Negative Urine Bilirubin Negative Urine Urobilinogen Negative Ur Leukocyte Esterase Negative Urine WBC (Auto) Trace(0-5/hpf) Urine RBC (Auto) Trace(0-2/hpf) Urine Bacteria Absent Urine Glucose Negative Fluid Source Cerebral spinal Fluid Volume 2 Fluid Color Colorless Fluid Appearance Clear Fluid WBC 250 H* Fluid RBC 1.5 Fluid Tot Cell Count 100 Fluid Neutrophils 9 Fluid Lymphocytes 63 Fluid Monocytes 28 Fluid Comment CSF Cell Count Tube # 4 CSF Glucose 62 CSF Total Protein 92 H Diagnostic Imaging: MRI brain without contrast completed on 04/24/2018: no evidence of ischemic or hemorrhagic stroke. TTE 04/24/2018: Mobile calcification in proximal aorta. EF 65%. Atrial septal aneurysm with no PFO. CTA chest: no PE or aortic dissection. Assess/Plan/Problems-Billing Assessment: Mr. Raudel Lenz is a 68-year-old man with history of treated Lyme disease, myasthenia gravis not in an exacerbation, who presented with new onset headaches , fever, word finding difficulty and intermittent slurred speech, found to have viral meningitis. - Patient Problems (1) Viral meningitis, unspecified Code(s): A87.9 - VIRAL MENINGITIS, UNSPECIFIED SNOMED Code(s): 05850386 Comment: - Neurology following - LP 04/25/18 initially reveals elevated protein of 92 and WBC count of 250, in line with viral meningitis, pending diff and viral studies, HSV in the differential - Continue Acyclovir - DC ceftriaxone - ID consulted and will see this afternoon - Fioricet for headache PRN (2) TIA (transient ischemic attack) Code(s): G45.9 - TRANSIENT CEREBRAL ISCHEMIC ATTACK, UNSPECIFIED SNOMED Code(s ): 948367667 Comment: - CT head and MRI negative for CVA - ECHO shows mobile plaque - CTA chest as above, no aortic ulceration or dissection associate with plaque in the proximal aorta - Will need ASA and plavix for 30 days, dual antiplatelet therapy (3) Lumbar stenosis Code(s): M48.06 - SPINAL STENOSIS, LUMBAR REGION * DO NOT USE * SNOMED Code(s) : 23164792 Comment: - Stable, at baseline (4) HTN (hypertension) Code(s): I10 - ESSENTIAL (PRIMARY) HYPERTENSION SNOMED Code(s): 83873180 Comment: - Stable on home meds (5) Myasthenia gravis without (acute) exacerbation Code(s): G70.00 - MYASTHENIA GRAVIS WITHOUT (ACUTE) EXACERBATION SNOMED Code(s ): 47871224 Comment: - Stable, no exacerbation (6) Diabetes Code(s): E11.9 - TYPE 2 DIABETES MELLITUS WITHOUT COMPLICATIONS SNOMED Code(s) : 37226839 Comment: - BG stable, restart metformin at discharge Status and Disposition: Remain inpatient pending viral studies to guide therapy. Likely DC tomorrow.
--- NOTE | 2018-04-26 17:08 | CONS ---
CONSULTATION REPORT: DATE OF CONSULT: 04/26/18 REQUESTING PROVIDER: Reta Arizmendi NP CONSULTING SERVICE: Infectious Disease. REASON FOR CONSULT: Aseptic meningitis. IMPRESSION: 1. Ten-day illness starting with diarrhea, upper respiratory symptoms, several frontal headache, fevers and then some garbled speech and confusion. His spinal fluid showed 250 white cells, 65% lymphocytes, protein 92, glucose 62. The differential diagnosis for his aseptic meningitis I agree is most prominently Enterovirus this time of year and with exposure to young children about 2 weeks before he got sick, arboviruses such as West Nile and [place] virus. He did have travel to [facility] with a lot of outdoor exposure there, I think HSV less likely though still possible. If it is herpes meningitis that is self- limited, varicella also a consideration and also self- limited. Lyme is also a consideration, although he has improved pretty rapidly , which is little atypical for Lyme meningitis. He has a Lyme spinal fluid PCR pending, which is not sensitive or specific for Lyme meningitis. We will add a Lyme antibody in the blood as well. 2. Type 2 diabetes. 3. Hypertension. RECOMMENDATIONS: I will stop his acyclovir. Even if positive, I would not recommend further antiviral treatment given that it is a self-limited infection. He does have Enterovirus PCR pending. I added on the [facility] encephalitis panel, which does include varicella as well as the arboviruses. HISTORY OF PRESENT ILLNESS: This is a 68-year-old man admitted with headache, nausea after an episode of diarrhea and upper respiratory symptoms. His symptoms progressed over the course of about a week. He became increasingly tired and had no energy, some aches, he thought he had the flu. Then on Sunday visiting his partner, he developed some trouble getting his words out. Because of those symptoms, they came to the emergency room. His brain CT was negative. He is febrile to 38.6 degrees and his last fever was on 04/24/18. He was started on ceftriaxone and acyclovir after being seen by Dr. Melendrez, had a lumbar puncture with results as above. His spinal fluid culture and blood cultures are negative. Urine culture is negative as well. Over the last 2 to 3 days, he has had significant improvement and near resolution of the frontal headache. He has had no neck stiffness. His speech is normal. He has no confusion and has had increasing energy, ambulating around the unit and eating more. He has no new oral or genital ulcers, no new partners. He did have travel to [facility] about 3 weeks ago, stayed with his niece and their young kids between age of 3 and 5, no one was particularly ill. They went to the children's center near [place] and was with a sea of youngsters. He has no pets. He lives in [facility]. His female partner lives in [place]. No other sexual contact. No injection drugs. FAMILY HISTORY: No recurrent infections. REVIEW OF SYSTEMS: All negative except as noted above in the history of present illness to a 14-point review. PHYSICAL EXAM: Vital Signs: Temperature is 36.4, heart rate 60, respiratory rate 20, blood pressure 129/63, oxygen saturation 98% on room air. In general, he is awake, not in distress. Neurologic: He is oriented x3. Follows all commands. Cranial nerves II through XII are intact. HEENT: There is no thrush. Neck is supple without mass. Heart is regular rate and rhythm without murmurs, rubs, or gallops. Lungs are clear to auscultation bilaterally. Abdomen: Soft, nontender, nondistended. There are bowel sounds present. Skin : There is no rash or splinter hemorrhage. Musculoskeletal: There is no spine tenderness to palpation. LABORATORY DATA: White blood cell count 6, hemoglobin 12, platelets 163. Creatinine 0.7. Urinalysis showed ketones and blood. Please see impressions and recommendations as outlined above, which I have discussed with Reta Arizmendi NP. Thanks for asking me to see Mr. Lenz in consultation. [id number]/CPS #: [id number] RICK
[2018-04-26 23:24] LABS: Lyme Disease Source CSF
[2018-04-27] MEDS: Acyclovir IV(*) 800 MG in NS 0.9% 250 ML* 250 ML IVPB SCH (05:39)
[2018-04-27] MEDS ORDERED: Pantoprazole TAB (NF) 40 MG TAB PO SCH (09:00)
[2018-04-27] MEDS: Aspirin EC TAB* 81 MG TAB.EC PO SCH (09:22)
[2018-04-27] MEDS: amLODIPine TAB* 5 MG PO SCH (09:22)
[2018-04-27] MEDS: Clopidogrel TAB* 75 MG PO SCH (09:22)
[2018-04-27] MEDS: Losartan TAB* 25 MG PO SCH (09:23)
[2018-04-27] MEDS: Pyridostigmine TAB* 60 MG PO SCH (09:23)
[2018-04-27] MEDS: PITAVASTATIN 1 MG PO SCH (09:23)
[2018-04-27 11:42] VITALS: BP 136/57
--- NOTE | 2018-04-27 16:39 | DS ---
CC: Dr. Obey Landeros; Dr. Ramirez; Dr. Jack Melendrez; Dr. Melendez.* DISCHARGE SUMMARY: DATE OF ADMISSION: 04/24/18 DATE OF DISCHARGE: 04/27/18 PRIMARY CARE PROVIDER: Dr. Obey Landeros. DISCHARGE DIAGNOSES: 1. Fever and headache likely due to aseptic meningitis. 2. Episodes of garbled speech likely due to transient ischemic attack with an ulcerative/mobile calcification of the proximal aorta visualized on transthoracic echocardiogram. CONSULTATIONS DURING THE HOSPITAL STAY: Included Dr. Ramirez and Dr. Melendrez. MEDICATIONS AT DISCHARGE: Include: 1. Aspirin 81 mg daily for a month, then stop. 2. Plavix 75 mg daily for a month and stop. 3. Pyridostigmine 60 mg daily. 4. Livalo 1 mg daily. 5. Metformin 500 mg b.i.d. 6. Cozaar 20 mg b.i.d. 7. Norvasc 5 mg daily. LABORATORY DATA AND STUDIES PERFORMED DURING THE HOSPITAL STAY: Included: On 04/26/18: White blood cell count of 6.5, hemoglobin 12.1, hematocrit of 34, and platelets 163. Sodium was 142, potassium 3.8, chloride 109, carbon dioxide 26, BUN 7, creatinine of 0.75. Liver function is unremarkable. Cholesterol profile showed triglycerides of 110, cholesterol total of 99. LDL 45 and HDL of 31. Microbiology studies showed lyme disease serology and cryptococcal antigen, spinal fluid that is still pending at the time of dictation. Microbiology studies result had included CSF herpes virus 1 and herpes 2, PCRs that were both negative. Cerebral spinal fluid analysis showed colorless clear liquid with 250 mL total of WBC, 1.5 RBC, 63% of lymphocytes, 28% of monocytes. Borrelia burgdorferi, Borrelia mayonii and Borrelia garinii PCRs were negative. Rapid group A strep was negative. Enterovirus RNA was also negative that was PCR of CSF. CSF culture was negative for 2 days. Urine culture is negative. Blood cultures obtained on admission negative. Brain MRI obtained on 04/24/18. Impression: "No enhancing lesions are noted. No intracranial lesion is identified. No restriction or diffusion noted. Nonspecific significant abnormalities of the flare images and the deep white matter likely represent minor microvascular change". Brain CT obtained on 04/23/18. Impression: "Negative examination." Chest x-ray obtained on admission. Impression: "No active cardiopulmonary disease is noted." CT angiogram of the chest obtained on 04/24/18. Impression: "No CT evidence of aortic aneurysmal dissection. No CT evidence of acute pulmonary embolic disease." Transthoracic echocardiogram obtained on 04/24/18, showed mild concentric LVH with EF greater than 65%. No evidence of atrial septal aneurysm and no PFO. There was mobile calcification of the proximal aorta. HOSPITALIZATION COURSE: Raudel Lenz is a 68-year-old male who presented to the hospital complaining of several days of fevers and headache. He also had an episode of garbled speech as noted in the history and physical at admission performed by Dr. Oscar. Shortly, the patient was admitted to the hospital , evaluated with lumbar puncture, which showed 250 total of WBC with lymphocytic predominance. The suspicion was aseptic meningitis. Dr. Ramirez saw the patient in evaluation. On 04/26/18, we recommended stopping the patient 's Acyclovir with which the patient was treated. At this point, no further antimicrobial treatment was recommended. The thought was that the patient likely has a self-limited infection. Dr. Ramirez also ordered lyme disease serology, which is pending at the time of dictation. The patient's Lyme PCR was negative from his CSF. In regards to the patient's episode of slurred speech, the patient was evaluated by Neurology. Dr. Melendrez saw that the patient likely had a TIA episode related to his mobile and ulcerative plaque in his aorta. Dr. Melendrez recommended 1 month treatment duration of aspirin and Plavix. They will follow up with Dr. Melendez from Neurology as outpatient. By the time of discharge, the patient complained of no more headache and he had no neurological deficits. He is going to be discharged home. Recommendations to follow up with his primary care provider in 4 to [address] Melendez was recommended in 1 month. PHYSICAL EXAMINATION AT THE TIME OF DISCHARGE: Blood pressure of 136/57, heart rate of 56 and regular, respiratory rate 12, O2 saturation 97% on room air, and temperature 97.6. General Appearance: This is a very pleasant 68-year-old male who is in no acute distress. Alert, awake, and oriented x3. HEENT: Head atraumatic and normocephalic. Eyes: Pupils are equal, round, and reactive to light and accommodation. Oropharynx clear. Mucosa moist. Neck: Supple. No JVD, no bruits bilaterally. Cardiovascular: Regular, rate, and rhythm. No murmurs. Respiratory: Clear to auscultation bilaterally. Abdomen: Soft and nontender. Bowel sounds present in all 4 quadrants. Extremities: There is no edema. Pulses are +2 bilaterally. No clubbing or cyanosis. Neuro Evaluation: Speech clear. Cranial nerves II through XII grossly intact. Motor strength is 5/5 bilaterally. Please note that this is a short summary of the patient's hospitalization. Please refer to further medical records for details. TIME SPENT: Approximately 40 minutes was spent on the patient's discharge. [id number] #: [id number] MTDD
== END 2018-04-27 14:03 | disposition home or self-care (01) | DRG 98 ==
LOC: ED 21:53 → MEDTELE 04-24 02:24 → OBSVTOIN 04-25 10:40
PROVIDERS: ADMIT Hospitalist; ATTEND Internal Medicine
PROC: 009U3ZX Drainage of Spinal Canal, Percutaneous Approach, Diagnostic (ICD-10-PCS; principal; 2018-04-25)
DX: G03.0 Nonpyogenic meningitis (principal); G45.8 Other transient cerebral ischemic attacks and related syndromes; G70.00 Myasthenia gravis without (acute) exacerbation; E11.9 Type 2 diabetes mellitus without complications; I70.0 Atherosclerosis of aorta; I10 Essential (primary) hypertension; E78.5 Hyperlipidemia, unspecified; G47.33 Obstructive sleep apnea (adult) (pediatric); M48.061 Spinal stenosis, lumbar region without neurogenic claudication; Z79.84 Long term (current) use of oral hypoglycemic drugs; Z79.1 Long term (current) use of non-steroidal anti-inflammatories (NSAID); Z79.52 Long term (current) use of systemic steroids; Z79.899 Other long term (current) drug therapy; Z88.8 Allergy status to other drugs, medicaments and biological substances; Z87.891 Personal history of nicotine dependence; Z82.49 Family history of ischemic heart disease and other diseases of the circulatory system; Z82.3 Family history of stroke
CPT/HCPCS: 36415; 70450; 70553; 71045; 71275; 80053; 80061; 81003; 81015; 82550; 82945; 83036; 83605; 84157; 84484; 85025; 85610; 85730; 86140; 86618; 87040; 87070; 87086; 87205; 87476; 87498; 87529; 87651; 87798; 89051; 93005; 93306; 99284; A9270-GY; A9579; G0378; J0133; J0696; J2543; J3370; Q9967